=== PATIENT | female | born 1950 | race Caucasian/White ===

== ENCOUNTER → 2017-05-08 | Outpatient (CLI) | payer OTHER ==
[~2017-05-08] MED LIST: AMLO5TAB4 PO; CEFD300C37 PO; LISI1TAB5 PO; LISI1TAB7 PO; LOVA10TA PO; MECL25TA2 PO; MELO-190 PO; METF850T2 PO
== END | disposition home or self-care (01) ==
LOC: CFH 14:10
PROVIDERS: ATTEND Genetic Counselor, MS
DX: Z13.820 Encounter for screening for osteoporosis (principal); Z78.0 Asymptomatic menopausal state
CPT/HCPCS: 77080

== ENCOUNTER → 2017-06-08 | Outpatient (CLI) | payer OTHER ==
[~2017-06-08] MED LIST changes: -MELO-190 PO; +MELO7.5T31 PO
== END | disposition home or self-care (01) ==
LOC: STAR 14:37
PROVIDERS: ATTEND Orthopaedic Surgery Orthopaedic Surgery of the Spine
DX: Z01.818 Encounter for other preprocedural examination (principal); M48.07 Spinal stenosis, lumbosacral region; R82.99 Other abnormal findings in urine
CPT/HCPCS: 81001; 87086

== ENCOUNTER 2017-06-26 00:34 | Emergency (ER) | payer OTHER ==
[~2017-06-26] VITALS: Ht 160 cm; Wt 92.0 kg
[~2017-06-26 00:34] MED LIST changes: +ACET-1600 PO; +AMLO5TAB2 PO; +ASPI-621 PO; +ATOR-2 PO; +DIAZ5TAB4 PO; +GLIP10TA13 PO; +GLIP5TAB10 PO; +LEVE500T53 PO; +LISI-170 PO; +LISI40TA PO; +LOVA40TA2 PO; +OXYC1TAB7 PO; +VITA1CAP5 PO
[2017-06-26] MEDS ORDERED: SODIUM CHLORIDE 0.9% 1,000 ML IV ONE (00:50)
[2017-06-26] MEDS ORDERED: ONDANSETRON 2MG/ML, 2ML ONE (01:00)
[2017-06-26] MEDS ORDERED: MORPHINE SULFATE 4 MG/ML, 1ML ONE ×2 (01:00→02:54)
[2017-06-26] MEDS ORDERED: ONDANSETRON 2MG/ML, 2ML IVPush ONE (01:00)
[2017-06-26] MEDS: MORPHINE SULFATE 4 MG/ML, 1ML IVPush PRN ×2 (01:07→02:57)
[2017-06-26] MEDS ORDERED: ATOR80TA PO (01:50)
[2017-06-26] MEDS ORDERED: GABA300C10 PO (01:50)
[2017-06-26] MEDS ORDERED: INSU100C5 SQ-INSULIN (01:50)
[2017-06-26 04:47] VITALS: BP 149/69
== END 2017-06-26 06:40 | disposition home or self-care (01) ==
LOC: ED 02:13
DX: G89.11 Acute pain due to trauma (principal); M54.5 Low back pain; M25.552 Pain in left hip; M25.551 Pain in right hip; I10 Essential (primary) hypertension; E11.9 Type 2 diabetes mellitus without complications; E78.00 Pure hypercholesterolemia, unspecified; W06.XXXA Fall from bed, initial encounter; Y93.89 Activity, other specified; Y92.009 Unspecified place in unspecified non-institutional (private) residence as the place of occurrence of the external cause; Y99.9 Unspecified external cause status
CPT/HCPCS: 70450; 72110; 72192; 73523; 96361; 96374; 96375; 96376; 99285; J2405; J7030

== ENCOUNTER 2017-08-27 09:04 | Emergency (ER) | payer OTHER ==
[~2017-08-27] VITALS: Ht 162.6 cm; Wt 82.0 kg
[~2017-08-27 09:04] MED LIST changes: +ATOR80TA PO; +CARV3.1212 PO; +CARV3.122 PO; +FERR325T16 PO; +GABA300C10 PO; +INSU100C5 SQ-INSULIN; +INSU100I18 SQ-INSULIN
[2017-08-27 10:55] LABS: HEMATOCRIT 34.9 % (34.6-47.8); HEMOGLOBIN 11.4 g/dL (11.7-16.4); WHITE BLOOD COUNT 9.4 x10^3/uL (3.4-10)
[2017-08-27 11:08] LABS: ASPARTATE AMINO TRANSFERASE 11 U/L (15-37); BLOOD UREA NITROGEN 25 mg/dL (7-18)
[2017-08-27 13:21] VITALS: BP 171/81
== END 2017-08-27 13:23 | disposition home or self-care (01) ==
LOC: ED 12:15
DX: I82.432 Acute embolism and thrombosis of left popliteal vein (principal); Z87.891 Personal history of nicotine dependence
CPT/HCPCS: 36415; 70450; 80053; 85025; 85610; 85730; 93005; 99285

== ENCOUNTER 2017-08-31 10:57 | Inpatient (IN) | payer OTHER ==
[~2017-08-31] VITALS: Ht 162.6 cm; Wt 93.6 kg
[2017-08-31] MEDS ORDERED: SODIUM CHLORIDE FLUSH 10ML SYR IVF ONE (11:30)
[2017-08-31] MEDS ORDERED: ONDANSETRON 2MG/ML, 2ML IVPush ONE (11:30)
[2017-08-31] MEDS ORDERED: SODIUM CHLORIDE 0.9% 1,000ML IVBOLUS ONE (11:30)
[2017-08-31] MEDS ORDERED: ONDANSETRON 2MG/ML, 2ML ONE (11:39)
[2017-08-31 12:12] LABS: HEMATOCRIT 33.2 % (34.6-47.8); HEMOGLOBIN 10.8 g/dL (11.7-16.4); WHITE BLOOD COUNT 8.2 x10^3/uL (3.4-10)
[2017-08-31 12:18] LABS: BLOOD UREA NITROGEN 34 mg/dL (7-18)
[2017-08-31 12:22] LABS: ASPARTATE AMINO TRANSFERASE 11 U/L (15-37)
[2017-08-31] MEDS ORDERED: CEFTRIAXONE PMX 1GM/50ML 50 ML ONE (14:22)
[2017-08-31] MEDS ORDERED: CEFTRIAXONE PMX 1GM/50ML 50 ML IV ONE (14:30)
[2017-08-31] MEDS ORDERED: METF500T4 PO (16:31)
[2017-08-31] MEDS ORDERED: RIVA10TA PO (16:31)
[2017-08-31] MEDS: METRONIDAZOLE PMX 500MG/100ML 100 ML IV SCH (17:00)
[2017-08-31] MEDS ORDERED: ONDANSETRON 2MG/ML, 2ML IVPush PRN (17:00)
[2017-08-31] MEDS: CEFTRIAXONE PMX 2GM/50ML 50 ML IV SCH (17:00)
[2017-08-31] MEDS ORDERED: INSULIN ASPART 100 UNITS/ML, PEN SQ-INSULIN SCH (17:00)
[2017-08-31] MEDS ORDERED: METRONIDAZOLE PMX 500MG/100ML 100 ML ONE (17:15)
[2017-08-31] MEDS: SODIUM CHLORIDE 0.9% 1,000 ML IV SCH (17:32)
[2017-08-31 20:43] VITALS: BP 128/74
[2017-08-31] MEDS: INSULIN ASPART 100 UNITS/ML, PEN SQ-INSULIN SCH (21:00)
[2017-09-01] MEDS: METRONIDAZOLE PMX 500MG/100ML 100 ML IV SCH ×3 (00:07→19:50)
[2017-09-01] MEDS: SODIUM CHLORIDE 0.9% 1,000 ML IV SCH ×4 (00:07→23:42)
[2017-09-01 02:48] VITALS: BP 131/70
[2017-09-01 05:17] LABS: HEMATOCRIT 29.2 % (34.6-47.8); HEMOGLOBIN 9.3 g/dL (11.7-16.4); WHITE BLOOD COUNT 8.3 x10^3/uL (3.4-10)
[2017-09-01 05:25] LABS: BLOOD UREA NITROGEN 30 mg/dL (7-18)
[2017-09-01 05:28] LABS: ASPARTATE AMINO TRANSFERASE 12 U/L (15-37)
[2017-09-01 07:00] VITALS: BP 139/70
[2017-09-01] MEDS: INSULIN ASPART 100 UNITS/ML, PEN SQ-INSULIN SCH ×4 (07:00→21:00)
[2017-09-01] MEDS: PANTOPRAZOLE 40 MG IV IVPush SCH (08:31)
[2017-09-01] MEDS ORDERED: ENOXAPARIN 30 MG/0.3 ML SQ SCH (11:30)
[2017-09-01 12:45] VITALS: BP 150/79
[2017-09-01] MEDS: morphine SULFATE 10 MG/ML, 1ML IVPush PRN ×2 (14:23→19:53)
[2017-09-01] MEDS: FERROUS GLUCONATE 324 MG TABLET PO SCH (18:14)
[2017-09-01] MEDS: CEFTRIAXONE PMX 2GM/50ML 50 ML IV SCH (18:14)
[2017-09-01] MEDS: ATORVASTATIN 80 MG TABLET PO SCH (19:50)
[2017-09-01] MEDS: RIVAROXABAN 10 MG TABLET PO SCH (19:50)
[2017-09-01] MEDS: GABAPENTIN 300 MG CAPSULE PO SCH (19:50)
[2017-09-01 20:07] VITALS: BP 128/74
[2017-09-01 20:27] VITALS: BP 177/78
[2017-09-01] MEDS: hydrALAzine 20 MG/ML, 1ML IVPush PRN (20:45)
[2017-09-01 20:56] VITALS: BP 163/69
[2017-09-02] VITALS (9 sets, daily range): BP systolic 118–188; BP diastolic 66–102
[2017-09-02] MEDS: METRONIDAZOLE PMX 500MG/100ML 100 ML IV SCH ×3 (03:24→19:46)
[2017-09-02] MEDS: INSULIN ASPART 100 UNITS/ML, PEN SQ-INSULIN SCH ×4 (07:00→20:34)
[2017-09-02] MEDS: PANTOPRAZOLE 40 MG IV IVPush SCH (08:19)
[2017-09-02] MEDS: GABAPENTIN 300 MG CAPSULE PO SCH ×2 (08:19→20:30)
[2017-09-02] MEDS: RIVAROXABAN 10 MG TABLET PO SCH (08:19)
[2017-09-02] MEDS: CARVEDILOL 3.125 MG TABLET PO SCH (08:19)
[2017-09-02] MEDS: SODIUM CHLORIDE 0.9% 1,000 ML IV SCH ×2 (08:19→15:39)
[2017-09-02] MEDS: ENOXAPARIN 100 MG/ML SQ SCH ×2 (09:08→20:30)
[2017-09-02 09:10] LABS: BLOOD UREA NITROGEN 24 mg/dL (7-18)
[2017-09-02 09:13] LABS: ASPARTATE AMINO TRANSFERASE 15 U/L (15-37)
[2017-09-02] MEDS: ACETYLCYSTEINE 600 MG CAPSULE PO SCH ×2 (09:43→20:30)
[2017-09-02] MEDS ORDERED: OMNIPAQUE 350 MG/ML, 100ML BOTTLE ONE (10:42)
[2017-09-02] MEDS: FERROUS GLUCONATE 324 MG TABLET PO SCH (17:18)
[2017-09-02] MEDS: CEFTRIAXONE PMX 2GM/50ML 50 ML IV SCH (17:18)
[2017-09-02] MEDS: morphine SULFATE 10 MG/ML, 1ML IVPush PRN (19:46)
[2017-09-02] MEDS: ATORVASTATIN 80 MG TABLET PO SCH (20:30)
[2017-09-03 01:11] VITALS: BP 165/90
[2017-09-03] MEDS: METRONIDAZOLE PMX 500MG/100ML 100 ML IV SCH (03:05)
[2017-09-03 04:58] VITALS: BP 151/73
[2017-09-03] MEDS: SODIUM CHLORIDE 0.9% 1,000 ML IV SCH (05:00)
[2017-09-03 05:38] LABS: ABG COLLECTION SITE RIGHT RADIAL; COLLATERAL CIRCULATION TESTING NORMAL
[2017-09-03 05:44] VITALS: BP 132/77
[2017-09-03 05:52] LABS: HEMATOCRIT 28.5 % (34.6-47.8); HEMOGLOBIN 9.1 g/dL (11.7-16.4); WHITE BLOOD COUNT 6.5 x10^3/uL (3.4-10)
[2017-09-03 06:33] VITALS: BP 120/70
[2017-09-03] MEDS ORDERED: MAGNESIUM SULFATE PMX 4GM/100M 100 ML IV ONE (07:00)
[2017-09-03] MEDS ORDERED: POTASSIUM PHOSPHATE 44 MEQ in SODIUM CHLORIDE 0.9% 500 ML IV ONE (07:00)
[2017-09-03] MEDS: INSULIN ASPART 100 UNITS/ML, PEN SQ-INSULIN SCH ×4 (07:00→21:00)
[2017-09-03] MEDS: PANTOPRAZOLE 40 MG IV IVPush SCH (09:22)
[2017-09-03] MEDS: GABAPENTIN 300 MG CAPSULE PO SCH ×2 (09:22→21:03)
[2017-09-03] MEDS: HYDROcodone/APAP 5/325 TABLET PO PRN ×2 (09:22→21:05)
[2017-09-03] MEDS: metroNIDAZOLE 500 MG TABLET PO SCH ×3 (09:22→21:03)
[2017-09-03] MEDS: ENOXAPARIN 100 MG/ML SQ SCH (09:22)
[2017-09-03] MEDS: CARVEDILOL 3.125 MG TABLET PO SCH (09:23)
[2017-09-03] MEDS: ACETYLCYSTEINE 600 MG CAPSULE PO SCH ×2 (09:23→21:03)
[2017-09-03] MEDS: CEFTRIAXONE PMX 2GM/50ML 50 ML IV SCH (17:34)
[2017-09-03] MEDS: FERROUS GLUCONATE 324 MG TABLET PO SCH (17:36)
[2017-09-03] MEDS ORDERED: WARFARIN 5 MG TABLET PO-COUM SCH (18:00)
[2017-09-03] MEDS ORDERED: HEPARIN wt. based STROKE protocol MC PRN (21:00)
[2017-09-03] MEDS: ATORVASTATIN 80 MG TABLET PO SCH (21:03)
[2017-09-03] MEDS: DIAZEPAM 5 MG TABLET PO PRN (21:03)
[2017-09-03] MEDS: HEPARIN 25,000 UNITS/500ML PMX 500 ML IV PRN (21:17)
[2017-09-04 00:58] LABS: ABG COLLECTION SITE RIGHT RADIAL; COLLATERAL CIRCULATION TESTING NORMAL
[2017-09-04 04:48] LABS: HEMATOCRIT 25.7 % (34.6-47.8); HEMOGLOBIN 8.4 g/dL (11.7-16.4); WHITE BLOOD COUNT 4.5 x10^3/uL (3.4-10)
[2017-09-04 04:56] LABS: BLOOD UREA NITROGEN 16 mg/dL (7-18)
[2017-09-04 04:59] LABS: ASPARTATE AMINO TRANSFERASE 10 U/L (15-37)
[2017-09-04] MEDS: INSULIN ASPART 100 UNITS/ML, PEN SQ-INSULIN SCH ×4 (07:00→20:35)
[2017-09-04 08:22] LABS: ABG COLLECTION SITE RIGHT RADIAL; COLLATERAL CIRCULATION TESTING NORMAL
[2017-09-04] MEDS: GABAPENTIN 300 MG CAPSULE PO SCH ×2 (09:05→20:25)
[2017-09-04] MEDS: ACETYLCYSTEINE 600 MG CAPSULE PO SCH ×2 (09:05→20:25)
[2017-09-04] MEDS: metroNIDAZOLE 500 MG TABLET PO SCH ×3 (09:05→20:25)
[2017-09-04] MEDS: CARVEDILOL 3.125 MG TABLET PO SCH (09:05)
[2017-09-04] MEDS: PANTOPRAZOLE 40 MG IV IVPush SCH (09:05)
[2017-09-04] MEDS ORDERED: LIDOCAINE 1%, 20ML ONE (09:19)
[2017-09-04] MEDS: HEPARIN 25,000 UNITS/500ML PMX 500 ML IV PRN (11:40)
[2017-09-04] MEDS: FERROUS GLUCONATE 324 MG TABLET PO SCH (16:30)
[2017-09-04] MEDS: CEFTRIAXONE PMX 2GM/50ML 50 ML IV SCH (17:17)
[2017-09-04] MEDS: ATORVASTATIN 80 MG TABLET PO SCH (20:33)
[2017-09-04] MEDS: DIAZEPAM 5 MG TABLET PO PRN (21:35)
[2017-09-05 04:00] VITALS: BP 167/82
[2017-09-05 04:42] LABS: HEMATOCRIT 28.2 % (34.6-47.8); HEMOGLOBIN 9.2 g/dL (11.7-16.4)
[2017-09-05 04:54] LABS: BLOOD UREA NITROGEN 11 mg/dL (7-18)
[2017-09-05 04:59] LABS: ASPARTATE AMINO TRANSFERASE 14 U/L (15-37)
[2017-09-05] MEDS: hydrALAzine 20 MG/ML, 1ML IVPush PRN ×2 (05:11→17:14)
[2017-09-05] MEDS: HEPARIN 25,000 UNITS/500ML PMX 500 ML IV PRN (05:13)
[2017-09-05] MEDS: PANTOPRAZOLE 40 MG IV IVPush SCH (07:30)
[2017-09-05] MEDS: INSULIN ASPART 100 UNITS/ML, PEN SQ-INSULIN SCH ×4 (07:44→21:16)
[2017-09-05] MEDS ORDERED: PANTOPRAZOLE 40 MG IV ONE (07:51)
[2017-09-05] MEDS: metroNIDAZOLE 500 MG TABLET PO SCH ×3 (07:59→21:14)
[2017-09-05] MEDS: ACETYLCYSTEINE 600 MG CAPSULE PO SCH (07:59)
[2017-09-05] MEDS: GABAPENTIN 300 MG CAPSULE PO SCH ×2 (07:59→21:14)
[2017-09-05] MEDS: CARVEDILOL 3.125 MG TABLET PO SCH (07:59)
[2017-09-05] MEDS ORDERED: MAGNESIUM SULFATE PMX 4GM/100M 100 ML IV ONE (08:00)
[2017-09-05] MEDS ORDERED: BISACODYL 10 MG SUPP PR PRN (08:30)
[2017-09-05] MEDS: FAMOTIDINE 20 MG/2 ML IVPush SCH ×2 (09:18→21:13)
[2017-09-05] MEDS: FUROSEMIDE 20 MG/2 ML IV SCH ×2 (09:18→19:33)
[2017-09-05] MEDS: DOCUSATE 100 MG CAPSULE PO SCH (09:58)
[2017-09-05] MEDS: FERROUS GLUCONATE 324 MG TABLET PO SCH (17:14)
[2017-09-05] MEDS: CEFTRIAXONE PMX 2GM/50ML 50 ML IV SCH (17:15)
[2017-09-05] MEDS: morphine SULFATE 10 MG/ML, 1ML IVPush PRN (19:33)
[2017-09-05] MEDS: DIAZEPAM 5 MG TABLET PO PRN (21:14)
[2017-09-05] MEDS: SENNA/DOCUSATE TABLET PO SCH (21:14)
[2017-09-05] MEDS: ATORVASTATIN 80 MG TABLET PO SCH (21:14)
[2017-09-06] MEDS: HEPARIN 25,000 UNITS/500ML PMX 500 ML IV PRN ×2 (00:18→15:20)
[2017-09-06 04:15] VITALS: BP 134/58
[2017-09-06 04:44] LABS: BLOOD UREA NITROGEN 9 mg/dL (7-18)
[2017-09-06 04:48] LABS: ASPARTATE AMINO TRANSFERASE 16 U/L (15-37)
[2017-09-06] MEDS ORDERED: POTASSIUM CHLORIDE 20 MEQ TAB.ER.PRT PO ONE (06:30)
[2017-09-06] MEDS: DOCUSATE 100 MG CAPSULE PO SCH (08:49)
[2017-09-06] MEDS: GABAPENTIN 300 MG CAPSULE PO SCH ×2 (08:49→20:49)
[2017-09-06] MEDS: FAMOTIDINE 20 MG/2 ML IVPush SCH ×2 (08:49→20:49)
[2017-09-06] MEDS: INSULIN ASPART 100 UNITS/ML, PEN SQ-INSULIN SCH ×4 (08:49→20:51)
[2017-09-06] MEDS: metroNIDAZOLE 500 MG TABLET PO SCH ×3 (08:49→20:49)
[2017-09-06] MEDS: CARVEDILOL 3.125 MG TABLET PO SCH (08:49)
[2017-09-06] MEDS ORDERED: OMNIPAQUE 350 MG/ML, 100ML BOTTLE ONE (10:37)
[2017-09-06 11:01] VITALS: BP 153/79
[2017-09-06 14:33] VITALS: BP 150/79
[2017-09-06] MEDS: CEFTRIAXONE PMX 2GM/50ML 50 ML IV SCH (16:20)
[2017-09-06] MEDS: FERROUS GLUCONATE 324 MG TABLET PO SCH (16:20)
[2017-09-06 19:37] VITALS: BP 160/70
[2017-09-06] MEDS: ATORVASTATIN 80 MG TABLET PO SCH (20:49)
[2017-09-06] MEDS: SENNA/DOCUSATE TABLET PO SCH (20:50)
[2017-09-06] MEDS: DIAZEPAM 5 MG TABLET PO PRN (21:14)
[2017-09-07 00:05] VITALS: BP 153/74
[2017-09-07 04:15] VITALS: BP 148/69
[2017-09-07 05:42] LABS: HEMATOCRIT 26.7 % (34.6-47.8); HEMOGLOBIN 8.6 g/dL (11.7-16.4); WHITE BLOOD COUNT 5.8 x10^3/uL (3.4-10)
[2017-09-07 06:06] LABS: BLOOD UREA NITROGEN 7 mg/dL (7-18)
[2017-09-07 06:09] LABS: ASPARTATE AMINO TRANSFERASE 10 U/L (15-37)
[2017-09-07 06:10] LABS: ANTI-Xa-UNFRACTIONATED HEP 0.34 IU/mL (0.30-0.70)
[2017-09-07] MEDS ORDERED: MAGNESIUM SULFATE PMX 2GM/50ML 50 ML IV ONE (07:30)
[2017-09-07 07:33] VITALS: BP 151/68
[2017-09-07] MEDS: DOXYCYCLINE 100 MG in DEXTROSE 5% 250 ML IV SCH ×2 (08:08→20:24)
[2017-09-07] MEDS: HEPARIN 25,000 UNITS/500ML PMX 500 ML IV PRN (08:35)
[2017-09-07] MEDS: INSULIN ASPART 100 UNITS/ML, PEN SQ-INSULIN SCH ×4 (08:51→20:26)
[2017-09-07] MEDS: GABAPENTIN 300 MG CAPSULE PO SCH ×2 (08:51→20:25)
[2017-09-07] MEDS: FAMOTIDINE 20 MG/2 ML IVPush SCH ×2 (08:51→20:25)
[2017-09-07] MEDS: DOCUSATE 100 MG CAPSULE PO SCH (08:51)
[2017-09-07] MEDS: metroNIDAZOLE 500 MG TABLET PO SCH ×3 (08:51→20:25)
[2017-09-07] MEDS: CARVEDILOL 3.125 MG TABLET PO SCH (08:51)
[2017-09-07] MEDS ORDERED: LOSARTAN 25MG TABLET PO SCH (10:30)
[2017-09-07] MEDS: LACTULOSE 20 GM/30 ML UDC PO PRN (12:50)
[2017-09-07] MEDS: FERROUS GLUCONATE 324 MG TABLET PO SCH (17:20)
[2017-09-07] MEDS: CEFTRIAXONE PMX 2GM/50ML 50 ML IV SCH (17:20)
[2017-09-07] MEDS ORDERED: WARFARIN 5 MG TABLET PO-COUM ONE (18:00)
[2017-09-07 18:41] VITALS: BP 154/68
[2017-09-07] MEDS: ATORVASTATIN 80 MG TABLET PO SCH (20:25)
[2017-09-07] MEDS ORDERED: CARVEDILOL 6.25 MG TABLET PO SCH (21:00)
[2017-09-08 00:06] VITALS: BP 154/73
[2017-09-08] MEDS: HEPARIN 25,000 UNITS/500ML PMX 500 ML IV PRN ×2 (03:14→17:12)
[2017-09-08 04:06] VITALS: BP 156/72
[2017-09-08 05:42] LABS: ANTI-Xa-UNFRACTIONATED HEP 0.08 IU/mL (0.30-0.70)
[2017-09-08 05:45] LABS: HEMATOCRIT 26.6 % (34.6-47.8); HEMOGLOBIN 8.6 g/dL (11.7-16.4); WHITE BLOOD COUNT 6.2 x10^3/uL (3.4-10)
[2017-09-08] MEDS: DOXYCYCLINE 100 MG in DEXTROSE 5% 250 ML IV SCH ×2 (08:01→20:45)
[2017-09-08 08:13] VITALS: BP 170/56
[2017-09-08] MEDS: LACTULOSE 20 GM/30 ML UDC PO PRN (08:43)
[2017-09-08] MEDS: INSULIN ASPART 100 UNITS/ML, PEN SQ-INSULIN SCH ×4 (08:43→20:46)
[2017-09-08] MEDS: metroNIDAZOLE 500 MG TABLET PO SCH ×3 (08:44→20:45)
[2017-09-08] MEDS: LOSARTAN 50MG TABLET PO SCH (08:44)
[2017-09-08] MEDS: FAMOTIDINE 20 MG/2 ML IVPush SCH ×2 (08:44→20:46)
[2017-09-08] MEDS: CARVEDILOL 12.5 MG TABLET PO SCH ×2 (08:44→20:45)
[2017-09-08] MEDS: GABAPENTIN 300 MG CAPSULE PO SCH ×2 (08:44→20:45)
[2017-09-08] MEDS: DOCUSATE 100 MG CAPSULE PO SCH (08:44)
[2017-09-08 12:34] VITALS: BP 166/69
[2017-09-08] MEDS: CEFTRIAXONE PMX 2GM/50ML 50 ML IV SCH (17:01)
[2017-09-08] MEDS: FERROUS GLUCONATE 324 MG TABLET PO SCH (17:02)
[2017-09-08] MEDS ORDERED: WARFARIN 5 MG TABLET PO-COUM SCH (18:00)
[2017-09-08 19:14] VITALS: BP 136/72
[2017-09-08] MEDS: HYDROcodone/APAP 5/325 TABLET PO PRN (20:12)
[2017-09-08] MEDS: ATORVASTATIN 80 MG TABLET PO SCH (20:45)
[2017-09-09 02:39] VITALS: BP 121/70
[2017-09-09] MEDS: HEPARIN 25,000 UNITS/500ML PMX 500 ML IV PRN ×2 (05:56→19:56)
[2017-09-09] MEDS: INSULIN ASPART 100 UNITS/ML, PEN SQ-INSULIN SCH ×4 (07:00→20:39)
[2017-09-09 07:15] VITALS: BP 126/71
[2017-09-09] MEDS: DOXYCYCLINE 100 MG in DEXTROSE 5% 250 ML IV SCH ×2 (08:16→20:04)
[2017-09-09] MEDS: FAMOTIDINE 20 MG/2 ML IVPush SCH ×2 (08:16→20:38)
[2017-09-09] MEDS: CARVEDILOL 12.5 MG TABLET PO SCH ×2 (08:16→20:38)
[2017-09-09] MEDS: DOCUSATE 100 MG CAPSULE PO SCH (08:16)
[2017-09-09] MEDS: GABAPENTIN 300 MG CAPSULE PO SCH ×2 (08:17→20:38)
[2017-09-09] MEDS: LOSARTAN 50MG TABLET PO SCH (08:17)
[2017-09-09] MEDS: metroNIDAZOLE 500 MG TABLET PO SCH ×3 (08:17→20:38)
[2017-09-09 13:31] VITALS: BP 181/76
[2017-09-09 16:38] VITALS: BP 167/73
[2017-09-09] MEDS ORDERED: WARFARIN 5 MG TABLET PO-COUM ONE (18:00)
[2017-09-09] MEDS: CEFTRIAXONE PMX 2GM/50ML 50 ML IV SCH (18:10)
[2017-09-09] MEDS: FERROUS GLUCONATE 324 MG TABLET PO SCH (18:10)
[2017-09-09] MEDS: HYDROcodone/APAP 5/325 TABLET PO PRN (18:10)
[2017-09-09 20:00] VITALS: BP 172/74
[2017-09-09] MEDS: ATORVASTATIN 80 MG TABLET PO SCH (20:38)
[2017-09-09 23:26] VITALS: BP 154/75
[2017-09-10 04:04] VITALS: BP 149/65
[2017-09-10 05:44] LABS: ANTI-Xa-UNFRACTIONATED HEP 0.49 IU/mL (0.30-0.70)
[2017-09-10 06:50] VITALS: BP 155/67
[2017-09-10] MEDS: DOXYCYCLINE 100 MG in DEXTROSE 5% 250 ML IV SCH (07:46)
[2017-09-10] MEDS: CARVEDILOL 12.5 MG TABLET PO SCH (08:18)
[2017-09-10] MEDS: DOCUSATE 100 MG CAPSULE PO SCH (08:18)
[2017-09-10] MEDS: metroNIDAZOLE 500 MG TABLET PO SCH (08:18)
[2017-09-10] MEDS: LOSARTAN 50MG TABLET PO SCH (08:18)
[2017-09-10] MEDS: FAMOTIDINE 20 MG/2 ML IVPush SCH (08:18)
[2017-09-10] MEDS: GABAPENTIN 300 MG CAPSULE PO SCH (08:18)
[2017-09-10] MEDS: INSULIN ASPART 100 UNITS/ML, PEN SQ-INSULIN SCH ×2 (08:19→11:29)
[2017-09-10] MEDS ORDERED: LOSA50TA2 PO (08:58)
[2017-09-10] MEDS ORDERED: DOXY100T10 PO (08:58)
[2017-09-10] MEDS ORDERED: CARV12.543 PO (08:58)
[2017-09-10] MEDS ORDERED: CEFD300C37 PO (08:58)
[2017-09-10] MEDS ORDERED: DOCU-131 PO (08:58)
[2017-09-10] MEDS ORDERED: METR500T PO (08:58)
[2017-09-10] MEDS ORDERED: WARF5TAB PO (08:58)
[2017-09-10] MEDS ORDERED: LOSARTAN 50MG TABLET PO SCH (09:00)
[2017-09-10 12:22] VITALS: BP 161/72
[2017-09-10] MEDS ORDERED: WARFARIN 5 MG TABLET PO-COUM ONE (18:00)
== END 2017-09-10 16:14 | disposition home health service (06) | DRG 871 ==
LOC: ED 12:39 → EDIP 15:53 → SUATTDRO 15:58 → 3NE 20:11 → CCU 09-03 07:31 → 4EST 09-06 10:53
PROVIDERS: ADMIT Internal Medicine; ATTEND Internal Medicine
PROC: 0T9B70Z Drainage of Bladder with Drainage Device, Via Natural or Artificial Opening (ICD-10-PCS; 2017-08-31)
PROC: 0GBH3ZX Excision of Right Thyroid Gland Lobe, Percutaneous Approach, Diagnostic (ICD-10-PCS; principal; 2017-09-04)
DX: A41.9 Sepsis, unspecified organism (principal); G93.40 Encephalopathy, unspecified; I26.99 Other pulmonary embolism without acute cor pulmonale; J96.01 Acute respiratory failure with hypoxia; E43 Unspecified severe protein-calorie malnutrition; A04.72 Enterocolitis due to Clostridium difficile, not specified as recurrent; I82.402 Acute embolism and thrombosis of unspecified deep veins of left lower extremity; J90 Pleural effusion, not elsewhere classified; E11.22 Type 2 diabetes mellitus with diabetic chronic kidney disease; J18.1 Lobar pneumonia, unspecified organism; I69.354 Hemiplegia and hemiparesis following cerebral infarction affecting left non-dominant side; N39.0 Urinary tract infection, site not specified; N18.3 Chronic kidney disease, stage 3 (moderate); E78.5 Hyperlipidemia, unspecified; I12.9 Hypertensive chronic kidney disease with stage 1 through stage 4 chronic kidney disease, or unspecified chronic kidney disease; B96.20 Unspecified Escherichia coli [E. coli] as the cause of diseases classified elsewhere; B95.4 Other streptococcus as the cause of diseases classified elsewhere; E04.1 Nontoxic single thyroid nodule; E78.00 Pure hypercholesterolemia, unspecified; E83.39 Other disorders of phosphorus metabolism; E83.42 Hypomagnesemia; K59.00 Constipation, unspecified; I07.1 Rheumatic tricuspid insufficiency; M19.90 Unspecified osteoarthritis, unspecified site; R91.1 Solitary pulmonary nodule; Z51.5 Encounter for palliative care; Z68.35 Body mass index [BMI] 35.0-35.9, adult; Z88.6 Allergy status to analgesic agent; Z79.01 Long term (current) use of anticoagulants; Z80.0 Family history of malignant neoplasm of digestive organs; Z85.048 Personal history of other malignant neoplasm of rectum, rectosigmoid junction, and anus; Z87.891 Personal history of nicotine dependence; Z98.1 Arthrodesis status; Z98.51 Tubal ligation status; Z90.89 Acquired absence of other organs; Z79.84 Long term (current) use of oral hypoglycemic drugs; Z79.899 Other long term (current) drug therapy
CPT/HCPCS: 10022; 36415; 36600; 70450; 71010; 71275; 74177; 76536; 76942; 78306; 80053; 81001; 82140; 82803; 82962; 83036; 83605; 83690; 83735; 84100; 84439; 84443; 85025; 85520; 85610; 85730; 87040; 87077; 87081; 87086; 87186; 87324; 87493; 88173; 89055; 93005; 93306; 93970; 96361; 96365; 96372; 96375; J0696; J1644; J1650; J1815; J2405; J3490; J7060; Q9967; A9503; C9113; C9898; J0360; J1940; J2270; J3475; J7030; J7040; S0028

== ENCOUNTER 2017-10-20 10:39 | Emergency (ER) | payer OTHER ==
[~2017-10-20] VITALS: Ht 160 cm; Wt 76.3 kg
[~2017-10-20 10:39] MED LIST changes: +CARV12.543 PO; +DOCU-131 PO; +DOXY100T10 PO; +LOSA50TA2 PO; +METF500T4 PO; +METR500T PO; +RIVA10TA PO; +WARF5TAB PO
[2017-10-20 11:36] LABS: BASOPHILS % (AUTO) 0 % (0-1); EOSINOPHILS # (AUTO) 0.16 x10^3/uL (0-0.4); EOSINOPHILS % (AUTO) 2 % (1-7); LYMPHOCYTES % (AUTO) 18 % (22-44); MD NO; MEAN CORPUSCULAR HGB CONC 32.2 g/dL (32.4-35.8); MEAN CORPUSCULAR VOLUME 80.7 fL (80-100); MEAN PLATELET VOLUME 8.6 fL (7.4-10.4); MONOCYTES # (AUTO) 0.27 x10^3/uL (0.2-0.8); MONOCYTES % (AUTO) 3 % (2-9); NEUTROPHILS # (AUTO) 6.13 x10^3/uL (1.8-6.8); NEUTROPHILS % (AUTO) 77 % (42-75); PLATELET COUNT 238 x10^3/uL (130-400); RED BLOOD COUNT 4.49 x10^6/uL (3.82-5.3)
[2017-10-20 11:42] LABS: INTERNATIONAL NORMALIZED RATIO 1.78 (0.93-1.1); PROTHROMBIN TIME 18.3 Seconds (9.6-11.5)
[2017-10-20 11:45] LABS: ALBUMIN 2.8 g/dL (3.4-5.0); ANION GAP 8 mmol/L (5-15); CALCIUM 9.5 mg/dL (8.5-10.1); CHLORIDE 109 mmol/L (98-107); CREATININE 0.67 mg/dL (0.55-1.02)
[2017-10-20 12:46] LABS: MICROSCOPIC AUTO
[2017-10-20 12:51] LABS: CULTURE INDICATED? YES
[2017-10-20 13:59] VITALS: BP 147/77
== END 2017-10-20 14:01 | disposition home or self-care (01) ==
LOC: ED 11:05
DX: N30.01 Acute cystitis with hematuria (principal); L89.92 Pressure ulcer of unspecified site, stage 2; E78.00 Pure hypercholesterolemia, unspecified; E87.5 Hyperkalemia; E11.9 Type 2 diabetes mellitus without complications; I10 Essential (primary) hypertension; Z86.73 Personal history of transient ischemic attack (TIA), and cerebral infarction without residual deficits; Z86.718 Personal history of other venous thrombosis and embolism; Z87.891 Personal history of nicotine dependence
CPT/HCPCS: 36415; 80048; 81001; 82040; 85025; 85610; 87077; 87086; 87186; 99284

== ENCOUNTER 2018-04-04 10:53 | Observation (INO) | payer OTHER ==
[~2018-04-04] VITALS: Ht 160 cm; Wt 78.9 kg
[~2018-04-04 10:53] MED LIST changes: -METF500T4 PO; +METF500T5 PO
[2018-04-04 11:52] LABS: BASOPHILS # (AUTO) 0.03 x10^3/uL (0-0.1); BASOPHILS % (AUTO) 0 % (0-1); EOSINOPHILS # (AUTO) 0.26 x10^3/uL (0-0.4); EOSINOPHILS % (AUTO) 3 % (1-7); LYMPHOCYTES # (AUTO) 2.25 x10^3/uL (1-3.4); LYMPHOCYTES % (AUTO) 23 % (22-44); MD NO; MEAN CORPUSCULAR HEMOGLOBIN 26.7 pg (27.0-34.8); MEAN CORPUSCULAR HGB CONC 32.6 g/dL (32.4-35.8); MEAN CORPUSCULAR VOLUME 81.8 fL (80-100); MEAN PLATELET VOLUME 9.2 fL (7.4-10.4); MONOCYTES # (AUTO) 0.39 x10^3/uL (0.2-0.8); MONOCYTES % (AUTO) 4 % (2-9); NEUTROPHILS # (AUTO) 6.97 x10^3/uL (1.8-6.8); NEUTROPHILS % (AUTO) 70 % (42-75); PLATELET COUNT 225 x10^3/uL (130-400); RED BLOOD COUNT 4.38 x10^6/uL (3.82-5.3); RED CELL DISTRIBUTION WIDTH 14.5 % (9.6-15.2)
[2018-04-04 11:56] LABS: ALANINE AMINOTRANSFERASE 18 U/L (12-78); ALBUMIN 2.8 g/dL (3.4-5.0); ANION GAP 11 mmol/L (5-15); CALCIUM 9.8 mg/dL (8.5-10.1); CHLORIDE 112 mmol/L (98-107); CREATININE 1.27 mg/dL (0.55-1.02); T4 (THYROXINE) 9.3 mcg/dL (4.8-13.9)
[2018-04-04 12:00] LABS: ALKALINE PHOSPHATASE 68 U/L (45-117); BILIRUBIN,TOTAL 0.3 mg/dL (0.2-1.0); TOTAL PROTEIN 6.4 g/dL (6.4-8.2); TROPONIN I < 0.015 ng/mL (0.000-0.045)
[2018-04-04] MEDS ORDERED: SODIUM CHLORIDE 0.9%, 500ML IVBOLUS ONE (12:30)
[2018-04-04] MEDS ORDERED: ENOXAPARIN 30 MG/0.3 ML SQ SCH (14:00)
[2018-04-04] MEDS ORDERED: DOCUSATE 100 MG CAPSULE PO PRN (14:30)
[2018-04-04] MEDS ORDERED: ENOXAPARIN 40 MG/0.4 ML ONE (15:34)
[2018-04-04 16:20] VITALS: BP 147/73
[2018-04-04 16:28] VITALS: BP 138/76
[2018-04-04 16:30] VITALS: BP 143/70
[2018-04-04] MEDS: FERROUS GLUCONATE 324 MG TABLET PO SCH (17:07)
[2018-04-04] MEDS: POTASSIUM CHLORIDE 20 MEQ in LACTATED RINGERS 1,000 ML IV SCH (17:07)
[2018-04-04 17:51] LABS: INTERNATIONAL NORMALIZED RATIO 2.15 (0.93-1.1)
[2018-04-04] MEDS ORDERED: WARFARIN 5 MG TABLET PO-COUM SCH (18:00)
[2018-04-04 20:00] VITALS: BP 146/68
[2018-04-04 20:21] VITALS: BP 158/72
[2018-04-04] MEDS ORDERED: WARFARIN 5 MG TABLET PO-COUM ONE (21:00)
[2018-04-04] MEDS ORDERED: ACETAMINOPHEN 325 MG TABLET ONE (21:24)
[2018-04-04] MEDS ORDERED: DIPHENHYDRAMINE 25 MG CAPSULE ONE (21:25)
[2018-04-04 21:30] VITALS: BP 149/90
[2018-04-04] MEDS ORDERED: DIPHENHYDRAMINE 25 MG CAPSULE PO ONE (21:30)
[2018-04-04] MEDS ORDERED: ACETAMINOPHEN 325 MG TABLET PO ONE (21:30)
[2018-04-04] MEDS: GABAPENTIN 300 MG CAPSULE PO SCH (21:32)
[2018-04-04] MEDS: CARVEDILOL 12.5 MG TABLET PO SCH (21:32)
[2018-04-04] MEDS: ATORVASTATIN 80 MG TABLET PO SCH (21:33)
[2018-04-05 01:38] VITALS: BP 136/78
[2018-04-05] MEDS: POTASSIUM CHLORIDE 20 MEQ in LACTATED RINGERS 1,000 ML IV SCH (02:13)
[2018-04-05 05:47] LABS: INTERNATIONAL NORMALIZED RATIO 2.28 (0.93-1.1); PROTHROMBIN TIME 23.3 Seconds (9.6-11.5)
[2018-04-05 05:49] LABS: BASOPHILS # (AUTO) 0.05 x10^3/uL (0-0.1); BASOPHILS % (AUTO) 1 % (0-1); EOSINOPHILS # (AUTO) 0.36 x10^3/uL (0-0.4); EOSINOPHILS % (AUTO) 5 % (1-7); LYMPHOCYTES % (AUTO) 34 % (22-44); MD NO; MEAN CORPUSCULAR HEMOGLOBIN 26.8 pg (27.0-34.8); MEAN CORPUSCULAR HGB CONC 32.9 g/dL (32.4-35.8); MEAN CORPUSCULAR VOLUME 81.7 fL (80-100); MEAN PLATELET VOLUME 9.4 fL (7.4-10.4); MONOCYTES # (AUTO) 0.48 x10^3/uL (0.2-0.8); MONOCYTES % (AUTO) 6 % (2-9); NEUTROPHILS # (AUTO) 4.23 x10^3/uL (1.8-6.8); NEUTROPHILS % (AUTO) 55 % (42-75); PLATELET COUNT 181 x10^3/uL (130-400); RED BLOOD COUNT 3.93 x10^6/uL (3.82-5.3); RED CELL DISTRIBUTION WIDTH 14.4 % (9.6-15.2)
[2018-04-05 05:55] LABS: CALCIUM 9.2 mg/dL (8.5-10.1); CHLORIDE 114 mmol/L (98-107)
[2018-04-05 05:59] LABS: ANION GAP 8 mmol/L (5-15); CREATININE 0.89 mg/dL (0.55-1.02)
[2018-04-05 08:42] VITALS: BP 148/73
[2018-04-05] MEDS: CARVEDILOL 12.5 MG TABLET PO SCH ×2 (09:07→22:08)
[2018-04-05] MEDS: GABAPENTIN 300 MG CAPSULE PO SCH ×2 (09:07→22:08)
[2018-04-05] MEDS: LOSARTAN 50MG TABLET PO SCH (09:07)
[2018-04-05] MEDS ORDERED: MAGNESIUM SULFATE 4 GM in SODIUM CHLORIDE 0.9% 100 ML IV ONE (09:30)
[2018-04-05] MEDS ORDERED: MAGNESIUM SULFATE PMX 4GM/100M 100 ML IVPB ONE (09:30)
[2018-04-05] MEDS: SODIUM CHLORIDE 0.9% 1,000 ML IV SCH ×2 (11:18→22:08)
[2018-04-05 13:43] VITALS: BP 133/74
[2018-04-05] MEDS: FERROUS GLUCONATE 324 MG TABLET PO SCH (17:49)
[2018-04-05] MEDS ORDERED: WARFARIN 5 MG TABLET PO-COUM SCH ×2 (18:00)
[2018-04-05 18:19] LABS: MICROSCOPIC AUTO
[2018-04-05 18:26] LABS: CULTURE INDICATED? YES
[2018-04-05 19:57] VITALS: BP 160/81
[2018-04-05 22:00] VITALS: BP 147/64
[2018-04-05] MEDS: ATORVASTATIN 80 MG TABLET PO SCH (22:08)
[2018-04-06 01:22] VITALS: BP 146/66
[2018-04-06 05:12] LABS: INTERNATIONAL NORMALIZED RATIO 1.84 (0.93-1.1); PROTHROMBIN TIME 18.9 Seconds (9.6-11.5)
[2018-04-06 07:47] VITALS: BP 147/81
[2018-04-06] MEDS: LOSARTAN 50MG TABLET PO SCH (08:24)
[2018-04-06] MEDS: CARVEDILOL 12.5 MG TABLET PO SCH (08:24)
[2018-04-06] MEDS: GABAPENTIN 300 MG CAPSULE PO SCH (08:24)
[2018-04-06 13:50] VITALS: BP 144/71
[2018-04-06] MEDS ORDERED: WARFARIN 3 MG TABLET PO-COUM ONE (18:00)
== END 2018-04-06 16:34 | disposition home or self-care (01) ==
LOC: ED 11:41 → EDIP 12:54 → INTOOBSV 12:54 → 4EST 16:11
PROVIDERS: ADMIT Hospitalist; ATTEND Hospitalist
DX: R55 Syncope and collapse (principal); E11.22 Type 2 diabetes mellitus with diabetic chronic kidney disease; E78.00 Pure hypercholesterolemia, unspecified; E78.5 Hyperlipidemia, unspecified; E83.42 Hypomagnesemia; E86.0 Dehydration; I12.9 Hypertensive chronic kidney disease with stage 1 through stage 4 chronic kidney disease, or unspecified chronic kidney disease; N18.3 Chronic kidney disease, stage 3 (moderate); N17.9 Acute kidney failure, unspecified; Z86.73 Personal history of transient ischemic attack (TIA), and cerebral infarction without residual deficits; Z79.01 Long term (current) use of anticoagulants; Z87.891 Personal history of nicotine dependence; Z80.0 Family history of malignant neoplasm of digestive organs
CPT/HCPCS: 36415; 71045; 80048; 80053; 81001; 83735; 84100; 84436; 84443; 84484; 85025; 85610; 87077; 87086; 87186; 93005; 93306; 93880; 96361; 96365; 96366; 97163; 97167; 99285; G0378; J3475; J3480; J7030; J7040; J7120; Q0163

== ENCOUNTER 2018-07-03 10:27 | Day surgery (SDC) | payer OTHER, MEDICAID ==
[~2018-07-03] VITALS: Ht 160 cm; Wt 74.1 kg
[~2018-07-03 10:27] MED LIST changes: -AMLO5TAB2 PO; +AMLO5TAB7 PO; +METF500T17 PO; -METF500T5 PO; +METF850T10 PO; -METF850T2 PO
[2018-07-03 11:05] VITALS: BP 149/79
[2018-07-03] MEDS ORDERED: BUPIVACAINE 0.25% ONE (11:20)
== END 2018-07-03 12:19 | disposition home or self-care (01) ==
LOC: CACL 10:27
PROVIDERS: ATTEND Internal Medicine Cardiovascular Disease
DX: I63.9 Cerebral infarction, unspecified (principal); I48.91 Unspecified atrial fibrillation; I10 Essential (primary) hypertension; E11.9 Type 2 diabetes mellitus without complications; E78.5 Hyperlipidemia, unspecified; Z79.899 Other long term (current) drug therapy
CPT/HCPCS: 33282; C1764; J3490

== ENCOUNTER 2019-09-18 11:58 | Inpatient (IN) | payer MEDICAID, MEDICARE, OTHER ==
[~2019-09-18] VITALS: Ht 162.6 cm; Wt 74.2 kg
[~2019-09-18 11:58] MED LIST changes: +AMLO-150 PO; -AMLO5TAB7 PO; -ASPI-621 PO; +ASPI81TA45 PO; -DOXY100T10 PO; +DOXY100T23 PO; +LISI1TAB19 PO; +LISI1TAB20 PO; -LISI1TAB5 PO; -LISI1TAB7 PO; -RIVA10TA PO; +RIVA10TA2 PO
[2019-09-18] MEDS ORDERED: AMLO10TA8 PO (12:25)
[2019-09-18] MEDS ORDERED: RIVA15TA PO (12:25)
[2019-09-18] MEDS ORDERED: ISOS120T4 PO (12:25)
[2019-09-18] MEDS ORDERED: CARV20CP PO (12:25)
[2019-09-18] MEDS ORDERED: METF10007 PO (12:25)
[2019-09-18] MEDS ORDERED: ATOR40TA78 PO (12:25)
[2019-09-18] MEDS ORDERED: GABA300C10 PO (12:25)
--- NOTE | 2019-09-18 12:30 | NUR ---
PT HAS CO OF NEW ONSET SWELLING IN LEGS AND ARMS. HX OF CHF. DENIES CP, COB, OR COUGH. NO N/V/D. PT BILAT LOWER LEG IS 2+ EDEMA PITTING. PT STATES "MY ANKLES ARE NORMALLY SKINNY". WT INCREASE FROM LAST DR VISIT A MONTH AGO. 160 LBS TO 198 LBS TODAY. PT IS MAX ASSIST FROM CHAIR TO BED. FAMILY AT BEDSIDE. POC DISCUSSED. SENIOR SUPPORT ENGINEER APPLIED.
[2019-09-18] MEDS ORDERED: SODIUM CHLORIDE FLUSH 10ML SYR IVF ONE (13:30)
--- NOTE | 2019-09-18 13:38 | NUR ---
IV ESTABLISHED, LABS DRAWN. VS STABLE, NO NEEDS AT THIS TIME
[2019-09-18 13:48] LABS: BASOPHILS # (AUTO) 0.05 x10^3/uL (0-0.1); BASOPHILS % (AUTO) 1 % (0-1); EOSINOPHILS # (AUTO) 0.69 x10^3/uL (0-0.4); EOSINOPHILS % (AUTO) 11 % (1-7); LYMPHOCYTES # (AUTO) 1.09 x10^3/uL (1-3.4); LYMPHOCYTES % (AUTO) 18 % (22-44); MD NO; MEAN CORPUSCULAR HEMOGLOBIN 26.4 pg (27.0-34.8); MEAN CORPUSCULAR HGB CONC 31.7 g/dL (32.4-35.8); MEAN CORPUSCULAR VOLUME 83.3 fL (80-100); MEAN PLATELET VOLUME 8.1 fL (7.4-10.4); MONOCYTES # (AUTO) 0.23 x10^3/uL (0.2-0.8); MONOCYTES % (AUTO) 4 % (2-9); NEUTROPHILS # (AUTO) 4.01 x10^3/uL (1.8-6.8); NEUTROPHILS % (AUTO) 66 % (42-75); PLATELET COUNT 182 x10^3/uL (130-400); RED BLOOD COUNT 3.15 x10^6/uL (3.82-5.3); RED CELL DISTRIBUTION WIDTH 14.5 % (9.6-15.2)
[2019-09-18 13:59] LABS: ALBUMIN 2.5 g/dL (3.4-5.0); ANION GAP 7 mmol/L (5-15); CALCIUM 8.3 mg/dL (8.5-10.1); CHLORIDE 119 mmol/L (98-107); INTERNATIONAL NORMALIZED RATIO 1.49 (0.93-1.1); PROTHROMBIN TIME 15.4 Seconds (9.6-11.5)
[2019-09-18 14:04] LABS: ALANINE AMINOTRANSFERASE 9 U/L (12-78); ALKALINE PHOSPHATASE 66 U/L (45-117); BILIRUBIN,TOTAL 0.3 mg/dL (0.2-1.0); CREATININE 2.24 mg/dL (0.55-1.02); TOTAL PROTEIN 6.1 g/dL (6.4-8.2); TROPONIN I < 0.015 ng/mL (0.000-0.045)
--- NOTE | 2019-09-18 14:40 | NUR ---
THROUGHPUT RN: PT W/ [employer]. SPOKE W/ EMERSON FROM [facility] WHO DECLINED TRANSFER. SPOKE W/ ERIN FROM [facility] WHO DECLINED TRANSFER. PSN FAXED TO [phone]. CONFIRMATION RECEIVED.
--- NOTE | 2019-09-18 14:48 | NUR ---
BREAK RN: PT PROVIDED WITH WARM BLANKETS, AND WATER PER REQUEST. CALL LIGHT IN REACH. PT DENIES ANY FURTHER NEEDS OR CONCERNS AT THIS TIME.
--- NOTE | 2019-09-18 14:56 | NUR ---
BREAK RN: CHARTED UNDER WRONG NAME ACCIDENTALLY. EARLIER NOTE TO THIS USER.
--- NOTE | 2019-09-18 15:13 | NUR ---
REPORT TO IRINA
[2019-09-18] MEDS ORDERED: RIVAROXABAN 10 MG TABLET PO SCH (16:30)
[2019-09-18] MEDS ORDERED: LACTATED RINGERS 1,000 ML IV SCH (16:30)
[2019-09-18] MEDS ORDERED: FERROUS GLUCONATE 324 MG TABLET PO SCH (17:00)
[2019-09-18 17:04] VITALS: BP 149/67
[2019-09-18] MEDS: RIVAROXABAN 10 MG TABLET PO SCH (17:21)
[2019-09-18 19:35] VITALS: BP 166/73
[2019-09-18] MEDS: INSULIN LISPRO 100 UNITS/ML, PEN SQ-INSULIN SCH (21:00)
[2019-09-18] MEDS: GABAPENTIN 300 MG CAPSULE PO SCH (21:05)
[2019-09-18] MEDS: ATORVASTATIN 40 MG TABLET PO SCH (21:06)
[2019-09-18] MEDS: ACETAMINOPHEN 325 MG TABLET PO PRN (22:52)
[2019-09-19 02:52] VITALS: BP 149/64
[2019-09-19 04:19] LABS: MEAN CORPUSCULAR HEMOGLOBIN 25.9 pg (27.0-34.8); MEAN CORPUSCULAR HGB CONC 31.5 g/dL (32.4-35.8); MEAN CORPUSCULAR VOLUME 82.3 fL (80-100); PLATELET COUNT 169 x10^3/uL (130-400); RED BLOOD COUNT 2.95 x10^6/uL (3.82-5.3); RED CELL DISTRIBUTION WIDTH 14.5 % (9.6-15.2)
[2019-09-19 04:27] LABS: BASOPHILS # (AUTO) 0.05 x10^3/uL (0-0.1); BASOPHILS % (AUTO) 1 % (0-1); EOSINOPHILS # (AUTO) 0.71 x10^3/uL (0-0.4); EOSINOPHILS % (AUTO) 13 % (1-7); LYMPHOCYTES # (AUTO) 1.38 x10^3/uL (1-3.4); LYMPHOCYTES % (AUTO) 25 % (22-44); MD NO; MONOCYTES # (AUTO) 0.26 x10^3/uL (0.2-0.8); MONOCYTES % (AUTO) 5 % (2-9); NEUTROPHILS # (AUTO) 3.07 x10^3/uL (1.8-6.8); NEUTROPHILS % (AUTO) 56 % (42-75)
[2019-09-19 04:33] LABS: CHLORIDE 116 mmol/L (98-107)
[2019-09-19 04:43] LABS: ALANINE AMINOTRANSFERASE 11 U/L (12-78); ALBUMIN 2.3 g/dL (3.4-5.0); ALKALINE PHOSPHATASE 63 U/L (45-117); ANION GAP 6 mmol/L (5-15); BILIRUBIN,TOTAL 0.3 mg/dL (0.2-1.0); CALCIUM 7.6 mg/dL (8.5-10.1); CREATININE 2.05 mg/dL (0.55-1.02); TOTAL PROTEIN 5.4 g/dL (6.4-8.2)
[2019-09-19] MEDS: INSULIN LISPRO 100 UNITS/ML, PEN SQ-INSULIN SCH ×4 (07:00→21:00)
[2019-09-19] MEDS ORDERED: MAGNESIUM SULFATE PMX 2GM/50ML 50 ML IV ONE (07:30)
[2019-09-19 08:05] VITALS: BP 163/72
[2019-09-19] MEDS: GABAPENTIN 300 MG CAPSULE PO SCH ×2 (08:31→21:22)
[2019-09-19] MEDS: CARVEDILOL 25 MG TABLET PO SCH (08:32)
[2019-09-19] MEDS: ISOSORBIDE MONONITRATE ER 30 MG TABLET PO SCH (08:32)
[2019-09-19] MEDS: DOCUSATE 100 MG CAPSULE PO PRN (08:57)
[2019-09-19 11:21] VITALS: BP 147/62
[2019-09-19] MEDS ORDERED: FLU VACC QS2019-20 36MOS UP/PF 0.5 ML IM-VACC ONE (12:00)
[2019-09-19] MEDS ORDERED: PHARMACY MAY ADJ FOR RENAL FX MC PRN (14:00)
[2019-09-19 14:05] LABS: MICROSCOPIC INDICATED
[2019-09-19 14:15] LABS: CREATININE,URINE RANDOM 49.8 mg/dL
[2019-09-19] MEDS ORDERED: POTASSIUM CHLORIDE 20 MEQ TAB.ER.PRT PO ONE (16:30)
[2019-09-19] MEDS: CEFTRIAXONE PMX 1GM/50ML 50 ML IV SCH (16:51)
[2019-09-19] MEDS: RIVAROXABAN 10 MG TABLET PO SCH (16:52)
[2019-09-19 16:59] VITALS: BP 163/70
[2019-09-19 19:05] VITALS: BP 172/62
[2019-09-19] MEDS ORDERED: APIXABAN 5 MG TABLET PO SCH (20:00)
[2019-09-19] MEDS: ACETAMINOPHEN 325 MG TABLET PO PRN (21:22)
[2019-09-19] MEDS: ATORVASTATIN 40 MG TABLET PO SCH (21:22)
[2019-09-20 02:09] VITALS: BP 154/66
[2019-09-20 04:46] LABS: BASOPHILS # (AUTO) 0.04 x10^3/uL (0-0.1); BASOPHILS % (AUTO) 1 % (0-1); EOSINOPHILS # (AUTO) 0.71 x10^3/uL (0-0.4); EOSINOPHILS % (AUTO) 14 % (1-7); LYMPHOCYTES # (AUTO) 1.39 x10^3/uL (1-3.4); LYMPHOCYTES % (AUTO) 27 % (22-44); MD NO; MEAN CORPUSCULAR HEMOGLOBIN 25.9 pg (27.0-34.8); MEAN CORPUSCULAR HGB CONC 31.4 g/dL (32.4-35.8); MEAN CORPUSCULAR VOLUME 82.6 fL (80-100); MEAN PLATELET VOLUME 7.8 fL (7.4-10.4); MONOCYTES # (AUTO) 0.34 x10^3/uL (0.2-0.8); MONOCYTES % (AUTO) 7 % (2-9); NEUTROPHILS % (AUTO) 52 % (42-75); PLATELET COUNT 177 x10^3/uL (130-400); RED BLOOD COUNT 2.92 x10^6/uL (3.82-5.3); RED CELL DISTRIBUTION WIDTH 14.5 % (9.6-15.2)
[2019-09-20 04:58] LABS: ANION GAP 4 mmol/L (5-15); CALCIUM 8.1 mg/dL (8.5-10.1); CHLORIDE 119 mmol/L (98-107); CREATININE 1.99 mg/dL (0.55-1.02)
[2019-09-20] MEDS: INSULIN LISPRO 100 UNITS/ML, PEN SQ-INSULIN SCH ×4 (07:00→21:49)
[2019-09-20 08:28] VITALS: BP 188/71
[2019-09-20] MEDS ORDERED: APIXABAN 5 MG TABLET PO SCH (09:00)
[2019-09-20] MEDS ORDERED: IRON SUCROSE COMPLEX 100MG/5ML IV SCH (09:00)
[2019-09-20] MEDS: IRON SUCROSE COMPLEX 100MG/5ML IV SCH (09:47)
[2019-09-20] MEDS: CARVEDILOL 25 MG TABLET PO SCH (09:48)
[2019-09-20] MEDS: AMLODIPINE 10 MG TAB PO SCH (09:48)
[2019-09-20] MEDS: GABAPENTIN 300 MG CAPSULE PO SCH ×2 (09:48→21:50)
[2019-09-20] MEDS: APIXABAN 5 MG TABLET PO SCH ×2 (09:48→21:50)
[2019-09-20] MEDS: ISOSORBIDE MONONITRATE ER 30 MG TABLET PO SCH (09:48)
[2019-09-20 13:02] VITALS: BP 169/76
[2019-09-20] MEDS: CEFTRIAXONE PMX 1GM/50ML 50 ML IV SCH (17:35)
[2019-09-20] MEDS: FUROSEMIDE 20 MG TABLET PO SCH (18:36)
[2019-09-20 20:03] VITALS: BP 170/70
[2019-09-20] MEDS: ACETAMINOPHEN 325 MG TABLET PO PRN (20:59)
[2019-09-20] MEDS: ATORVASTATIN 40 MG TABLET PO SCH (21:50)
[2019-09-21 01:23] VITALS: BP 170/67
[2019-09-21 02:58] VITALS: BP 180/70
[2019-09-21] MEDS ORDERED: hydrALAzine 20 MG/ML, 1ML IV ONE (03:30)
[2019-09-21 05:40] VITALS: BP 163/73
[2019-09-21 06:44] LABS: BASOPHILS # (AUTO) 0.04 x10^3/uL (0-0.1); BASOPHILS % (AUTO) 1 % (0-1); EOSINOPHILS # (AUTO) 0.59 x10^3/uL (0-0.4); EOSINOPHILS % (AUTO) 11 % (1-7); LYMPHOCYTES # (AUTO) 1.41 x10^3/uL (1-3.4); LYMPHOCYTES % (AUTO) 27 % (22-44); MD NO; MEAN CORPUSCULAR HEMOGLOBIN 25.9 pg (27.0-34.8); MEAN CORPUSCULAR HGB CONC 32.1 g/dL (32.4-35.8); MEAN CORPUSCULAR VOLUME 80.8 fL (80-100); MEAN PLATELET VOLUME 7.6 fL (7.4-10.4); MONOCYTES # (AUTO) 0.33 x10^3/uL (0.2-0.8); MONOCYTES % (AUTO) 6 % (2-9); NEUTROPHILS # (AUTO) 2.86 x10^3/uL (1.8-6.8); NEUTROPHILS % (AUTO) 55 % (42-75); PLATELET COUNT 186 x10^3/uL (130-400); RED BLOOD COUNT 2.94 x10^6/uL (3.82-5.3); RED CELL DISTRIBUTION WIDTH 14.7 % (9.6-15.2)
[2019-09-21 06:50] LABS: ALBUMIN 2.3 g/dL (3.4-5.0); ANION GAP 6 mmol/L (5-15); CALCIUM 8.3 mg/dL (8.5-10.1); CHLORIDE 118 mmol/L (98-107); CREATININE 1.95 mg/dL (0.55-1.02)
[2019-09-21 06:56] VITALS: BP 170/68
[2019-09-21] MEDS: INSULIN LISPRO 100 UNITS/ML, PEN SQ-INSULIN SCH ×4 (07:00→20:40)
[2019-09-21] MEDS: GABAPENTIN 300 MG CAPSULE PO SCH ×2 (09:16→20:40)
[2019-09-21] MEDS: IRON SUCROSE COMPLEX 100MG/5ML IV SCH (09:16)
[2019-09-21] MEDS: ISOSORBIDE MONONITRATE ER 30 MG TABLET PO SCH (09:17)
[2019-09-21] MEDS: AMLODIPINE 10 MG TAB PO SCH (09:17)
[2019-09-21] MEDS: APIXABAN 5 MG TABLET PO SCH ×2 (09:18→20:40)
[2019-09-21] MEDS: CARVEDILOL 25 MG TABLET PO SCH (09:18)
[2019-09-21] MEDS: FUROSEMIDE 20 MG TABLET PO SCH ×2 (09:18→17:31)
[2019-09-21 12:48] VITALS: BP 166/69
[2019-09-21] MEDS: CEFTRIAXONE PMX 1GM/50ML 50 ML IV SCH (17:31)
[2019-09-21 20:09] VITALS: BP 176/65
[2019-09-21] MEDS: hydrALAzine 20 MG/ML, 1ML IV PRN (20:39)
[2019-09-21] MEDS: ACETAMINOPHEN 325 MG TABLET PO PRN (20:40)
[2019-09-21] MEDS: ATORVASTATIN 40 MG TABLET PO SCH (20:40)
[2019-09-21] MEDS: DOCUSATE 100 MG CAPSULE PO PRN (20:56)
[2019-09-22] VITALS (7 sets, daily range): BP systolic 156–183; BP diastolic 61–75
[2019-09-22] MEDS: hydrALAzine 20 MG/ML, 1ML IV PRN (04:44)
[2019-09-22] MEDS: INSULIN LISPRO 100 UNITS/ML, PEN SQ-INSULIN SCH ×4 (07:00→21:02)
[2019-09-22 08:15] LABS: ANION GAP 6 mmol/L (5-15); CALCIUM 8.7 mg/dL (8.5-10.1); CHLORIDE 117 mmol/L (98-107); CREATININE 1.96 mg/dL (0.55-1.02)
[2019-09-22] MEDS: ISOSORBIDE MONONITRATE ER 30 MG TABLET PO SCH (08:33)
[2019-09-22] MEDS: CARVEDILOL 25 MG TABLET PO SCH (08:34)
[2019-09-22] MEDS: GABAPENTIN 300 MG CAPSULE PO SCH ×2 (08:34→21:08)
[2019-09-22] MEDS: IRON SUCROSE COMPLEX 100MG/5ML IV SCH (08:34)
[2019-09-22] MEDS: APIXABAN 5 MG TABLET PO SCH ×2 (08:34→21:08)
[2019-09-22] MEDS: AMLODIPINE 10 MG TAB PO SCH (08:35)
[2019-09-22] MEDS: FUROSEMIDE 20 MG TABLET PO SCH ×2 (08:35→17:06)
[2019-09-22] MEDS: DOCUSATE 100 MG CAPSULE PO PRN (17:06)
[2019-09-22] MEDS: AMLODIPINE 5 MG TABLET PO SCH (21:08)
[2019-09-22] MEDS: ACETAMINOPHEN 325 MG TABLET PO PRN (21:08)
[2019-09-22] MEDS: ATORVASTATIN 40 MG TABLET PO SCH (21:08)
[2019-09-23 03:06] VITALS: BP 164/71
[2019-09-23 05:48] LABS: ANION GAP 6 mmol/L (5-15); CALCIUM 8.3 mg/dL (8.5-10.1); CHLORIDE 117 mmol/L (98-107)
[2019-09-23 05:49] LABS: CREATININE 1.98 mg/dL (0.55-1.02)
[2019-09-23 06:48] VITALS: BP 163/68
[2019-09-23] MEDS: INSULIN LISPRO 100 UNITS/ML, PEN SQ-INSULIN SCH ×4 (07:00→20:49)
[2019-09-23] MEDS: IRON SUCROSE COMPLEX 100MG/5ML IV SCH (08:49)
[2019-09-23] MEDS: APIXABAN 5 MG TABLET PO SCH ×2 (08:53→20:48)
[2019-09-23] MEDS: GABAPENTIN 300 MG CAPSULE PO SCH ×2 (08:54→20:48)
[2019-09-23] MEDS: FUROSEMIDE 20 MG TABLET PO SCH ×2 (08:54→17:08)
[2019-09-23] MEDS: AMLODIPINE 5 MG TABLET PO SCH ×2 (08:54→20:48)
[2019-09-23] MEDS: CARVEDILOL 25 MG TABLET PO SCH (08:54)
[2019-09-23] MEDS: ISOSORBIDE MONONITRATE ER 30 MG TABLET PO SCH (08:54)
[2019-09-23] MEDS: DOCUSATE 100 MG CAPSULE PO PRN ×2 (08:54→22:01)
[2019-09-23 12:27] VITALS: BP 144/62
[2019-09-23 20:47] VITALS: BP 187/68
[2019-09-23] MEDS: ATORVASTATIN 40 MG TABLET PO SCH (20:48)
[2019-09-23 22:02] VITALS: BP 171/75
[2019-09-24 01:27] VITALS: BP 170/64
[2019-09-24 06:32] LABS: CALCIUM 8.3 mg/dL (8.5-10.1); CHLORIDE 115 mmol/L (98-107)
[2019-09-24 06:38] LABS: ALANINE AMINOTRANSFERASE 16 U/L (12-78); ALBUMIN 2.4 g/dL (3.4-5.0); ALKALINE PHOSPHATASE 59 U/L (45-117); ANION GAP 6 mmol/L (5-15); BILIRUBIN,TOTAL 0.2 mg/dL (0.2-1.0); CREATININE 2.06 mg/dL (0.55-1.02); TOTAL PROTEIN 5.5 g/dL (6.4-8.2)
[2019-09-24] MEDS: INSULIN LISPRO 100 UNITS/ML, PEN SQ-INSULIN SCH ×4 (07:00→20:37)
[2019-09-24 08:25] VITALS: BP 152/68
[2019-09-24] MEDS: ISOSORBIDE MONONITRATE ER 30 MG TABLET PO SCH (08:34)
[2019-09-24] MEDS: CARVEDILOL 25 MG TABLET PO SCH (08:34)
[2019-09-24] MEDS: FUROSEMIDE 20 MG TABLET PO SCH ×2 (08:34→17:13)
[2019-09-24] MEDS: AMLODIPINE 5 MG TABLET PO SCH ×2 (08:34→20:37)
[2019-09-24] MEDS: GABAPENTIN 300 MG CAPSULE PO SCH ×2 (08:35→20:37)
[2019-09-24] MEDS: APIXABAN 5 MG TABLET PO SCH ×2 (08:35→20:37)
[2019-09-24] MEDS ORDERED: POLYETHYLENE GLYCOL 17 GM PACKET ONE (10:07)
[2019-09-24] MEDS: DOCUSATE 100 MG CAPSULE PO PRN ×2 (10:19→20:37)
[2019-09-24] MEDS: POLYETHYLENE GLYCOL 17 GM PACKET PO SCH (10:20)
[2019-09-24 13:27] VITALS: BP 145/73
[2019-09-24 19:53] VITALS: BP 167/66
[2019-09-24] MEDS: ATORVASTATIN 40 MG TABLET PO SCH (20:37)
[2019-09-24] MEDS ORDERED: ISOSORBIDE MONONITRATE ER 30 MG TABLET PO SCH (21:00)
[2019-09-25 03:20] VITALS: BP 162/64
[2019-09-25 05:52] LABS: ANION GAP 7 mmol/L (5-15); CALCIUM 8.2 mg/dL (8.5-10.1); CHLORIDE 115 mmol/L (98-107); CREATININE 2.09 mg/dL (0.55-1.02)
[2019-09-25] MEDS: BISACODYL 10 MG SUPP PR PRN (06:13)
[2019-09-25] MEDS: INSULIN LISPRO 100 UNITS/ML, PEN SQ-INSULIN SCH ×4 (07:00→21:00)
[2019-09-25 08:06] VITALS: BP 165/66
[2019-09-25] MEDS: APIXABAN 5 MG TABLET PO SCH ×2 (08:35→21:17)
[2019-09-25] MEDS: ISOSORBIDE MONONITRATE ER 30 MG TABLET PO SCH (08:36)
[2019-09-25] MEDS: CARVEDILOL 25 MG TABLET PO SCH (08:37)
[2019-09-25] MEDS: GABAPENTIN 300 MG CAPSULE PO SCH ×2 (08:37→21:17)
[2019-09-25] MEDS: POLYETHYLENE GLYCOL 17 GM PACKET PO SCH (08:37)
[2019-09-25] MEDS: FUROSEMIDE 20 MG TABLET PO SCH ×2 (08:37→17:00)
[2019-09-25] MEDS: AMLODIPINE 5 MG TABLET PO SCH ×2 (08:37→21:17)
[2019-09-25] MEDS: LOSARTAN 25MG TABLET PO SCH (13:00)
[2019-09-25] MEDS ORDERED: DOXAZOSIN 1MG TABLET PO SCH (13:30)
[2019-09-25 14:28] VITALS: BP 162/69
[2019-09-25 20:29] VITALS: BP 174/69
[2019-09-25] MEDS: ATORVASTATIN 40 MG TABLET PO SCH (21:17)
[2019-09-26 02:30] VITALS: BP 165/75
[2019-09-26] MEDS: INSULIN LISPRO 100 UNITS/ML, PEN SQ-INSULIN SCH ×4 (07:00→20:41)
[2019-09-26 08:26] VITALS: BP 169/65
[2019-09-26] MEDS: FUROSEMIDE 20 MG TABLET PO SCH ×2 (08:33→17:00)
[2019-09-26] MEDS: LOSARTAN 25MG TABLET PO SCH (08:34)
[2019-09-26] MEDS: APIXABAN 5 MG TABLET PO SCH ×2 (08:34→20:41)
[2019-09-26] MEDS: POLYETHYLENE GLYCOL 17 GM PACKET PO SCH (08:34)
[2019-09-26] MEDS: ISOSORBIDE MONONITRATE ER 30 MG TABLET PO SCH (08:34)
[2019-09-26] MEDS: CARVEDILOL 25 MG TABLET PO SCH (08:34)
[2019-09-26] MEDS: DOCUSATE 100 MG CAPSULE PO PRN (08:35)
[2019-09-26] MEDS: AMLODIPINE 5 MG TABLET PO SCH ×2 (08:35→20:41)
[2019-09-26] MEDS: GABAPENTIN 300 MG CAPSULE PO SCH ×2 (08:35→20:41)
[2019-09-26 10:30] LABS: CREATININE CLEARANCE,URINE 19.6 (70.0-140.0)
[2019-09-26] MEDS: DOXAZOSIN 2MG TABLET PO SCH (11:00)
[2019-09-26] MEDS: BISACODYL 10 MG SUPP PR PRN (12:23)
[2019-09-26 13:35] VITALS: BP 150/58
[2019-09-26 14:00] VITALS: BP 158/67
[2019-09-26 14:52] VITALS: BP 122/68
[2019-09-26 19:32] VITALS: BP 160/67
[2019-09-26] MEDS: ATORVASTATIN 40 MG TABLET PO SCH (20:41)
[2019-09-27 01:52] VITALS: BP 146/69
[2019-09-27] MEDS: INSULIN LISPRO 100 UNITS/ML, PEN SQ-INSULIN SCH ×4 (07:00→21:23)
[2019-09-27 08:32] VITALS: BP 175/63
[2019-09-27] MEDS ORDERED: LOSARTAN 50MG TABLET PO SCH ×2 (09:00→21:00)
[2019-09-27] MEDS: POLYETHYLENE GLYCOL 17 GM PACKET PO SCH (09:00)
[2019-09-27] MEDS ORDERED: LOSARTAN 25MG TABLET PO SCH (09:29)
[2019-09-27] MEDS: GABAPENTIN 300 MG CAPSULE PO SCH ×2 (09:41→21:22)
[2019-09-27] MEDS: APIXABAN 5 MG TABLET PO SCH ×2 (09:41→21:22)
[2019-09-27] MEDS: DOXAZOSIN 2MG TABLET PO SCH (09:41)
[2019-09-27] MEDS: CARVEDILOL 25 MG TABLET PO SCH (09:41)
[2019-09-27] MEDS: ISOSORBIDE MONONITRATE ER 30 MG TABLET PO SCH (09:41)
[2019-09-27] MEDS: FUROSEMIDE 20 MG TABLET PO SCH ×2 (09:41→16:56)
[2019-09-27] MEDS: AMLODIPINE 5 MG TABLET PO SCH ×2 (09:58→21:22)
[2019-09-27 14:00] VITALS: BP 137/57
[2019-09-27 20:56] VITALS: BP 163/56
[2019-09-27] MEDS: ATORVASTATIN 40 MG TABLET PO SCH (21:22)
[2019-09-27] MEDS: LOSARTAN 25MG TABLET PO SCH (21:22)
[2019-09-28 03:41] VITALS: BP 133/65
[2019-09-28] MEDS: INSULIN LISPRO 100 UNITS/ML, PEN SQ-INSULIN SCH ×4 (07:00→20:23)
[2019-09-28 07:08] LABS: BASOPHILS # (AUTO) 0.04 x10^3/uL (0-0.1); BASOPHILS % (AUTO) 1 % (0-1); EOSINOPHILS # (AUTO) 0.66 x10^3/uL (0-0.4); EOSINOPHILS % (AUTO) 11 % (1-7); LYMPHOCYTES % (AUTO) 28 % (22-44); MD NO; MEAN CORPUSCULAR HEMOGLOBIN 25.7 pg (27.0-34.8); MEAN CORPUSCULAR HGB CONC 31.7 g/dL (32.4-35.8); MEAN CORPUSCULAR VOLUME 81.2 fL (80-100); MEAN PLATELET VOLUME 8.3 fL (7.4-10.4); MONOCYTES # (AUTO) 0.39 x10^3/uL (0.2-0.8); MONOCYTES % (AUTO) 6 % (2-9); NEUTROPHILS # (AUTO) 3.32 x10^3/uL (1.8-6.8); NEUTROPHILS % (AUTO) 54 % (42-75); PLATELET COUNT 175 x10^3/uL (130-400); RED BLOOD COUNT 3.01 x10^6/uL (3.82-5.3); RED CELL DISTRIBUTION WIDTH 15.7 % (9.6-15.2)
[2019-09-28 07:19] LABS: CHLORIDE 115 mmol/L (98-107)
[2019-09-28 07:24] LABS: ALBUMIN 2.3 g/dL (3.4-5.0); ANION GAP 8 mmol/L (5-15); CALCIUM 8.5 mg/dL (8.5-10.1); CREATININE 2.06 mg/dL (0.55-1.02)
[2019-09-28 07:50] VITALS: BP 171/77
[2019-09-28] MEDS: FUROSEMIDE 20 MG TABLET PO SCH ×2 (07:51→16:24)
[2019-09-28] MEDS: LOSARTAN 25MG TABLET PO SCH ×2 (07:51→20:25)
[2019-09-28] MEDS: APIXABAN 5 MG TABLET PO SCH ×2 (07:51→20:26)
[2019-09-28] MEDS: CARVEDILOL 25 MG TABLET PO SCH (07:51)
[2019-09-28] MEDS: ISOSORBIDE MONONITRATE ER 30 MG TABLET PO SCH (07:51)
[2019-09-28] MEDS: GABAPENTIN 300 MG CAPSULE PO SCH ×2 (07:51→20:25)
[2019-09-28] MEDS: AMLODIPINE 5 MG TABLET PO SCH ×2 (07:51→20:26)
[2019-09-28] MEDS: DOXAZOSIN 2MG TABLET PO SCH (07:51)
[2019-09-28] MEDS: POLYETHYLENE GLYCOL 17 GM PACKET PO SCH (07:52)
[2019-09-28 12:05] VITALS: BP 132/57
[2019-09-28 20:14] VITALS: BP 164/72
[2019-09-28] MEDS: ATORVASTATIN 40 MG TABLET PO SCH (20:25)
[2019-09-29 00:05] VITALS: BP 147/64
[2019-09-29] MEDS: INSULIN LISPRO 100 UNITS/ML, PEN SQ-INSULIN SCH ×4 (07:00→21:00)
[2019-09-29 07:34] VITALS: BP 173/64
[2019-09-29] MEDS: ISOSORBIDE MONONITRATE ER 30 MG TABLET PO SCH (08:00)
[2019-09-29] MEDS: APIXABAN 5 MG TABLET PO SCH (08:00)
[2019-09-29] MEDS: ACETAMINOPHEN 325 MG TABLET PO PRN (08:00)
[2019-09-29] MEDS: POLYETHYLENE GLYCOL 17 GM PACKET PO SCH (08:00)
[2019-09-29] MEDS: FUROSEMIDE 20 MG TABLET PO SCH ×2 (08:01→16:33)
[2019-09-29] MEDS: AMLODIPINE 5 MG TABLET PO SCH ×2 (08:01→22:33)
[2019-09-29] MEDS: DOXAZOSIN 2MG TABLET PO SCH (08:01)
[2019-09-29] MEDS: GABAPENTIN 300 MG CAPSULE PO SCH ×2 (08:01→22:33)
[2019-09-29] MEDS: CARVEDILOL 25 MG TABLET PO SCH (08:01)
[2019-09-29] MEDS: LOSARTAN 25MG TABLET PO SCH ×2 (08:01→22:33)
[2019-09-29] MEDS: DOCUSATE 100 MG CAPSULE PO PRN (08:02)
[2019-09-29 13:40] VITALS: BP 129/57
[2019-09-29] MEDS ORDERED: HEPARIN 5,000 UNITS/ML, 1ML IV PRN (20:00)
[2019-09-29] MEDS ORDERED: HEPARIN 5,000 UNITS/ML, 1ML IV ONE (20:00)
[2019-09-29] MEDS ORDERED: HEPARIN 25,000 UNITS/500ML PMX 500 ML IV PRN (20:00)
[2019-09-29 20:06] VITALS: BP 162/85
[2019-09-29] MEDS: ATORVASTATIN 40 MG TABLET PO SCH (22:33)
[2019-09-30 01:16] VITALS: BP 147/64
[2019-09-30 05:34] LABS: BASOPHILS # (AUTO) 0.04 x10^3/uL (0-0.1); BASOPHILS % (AUTO) 1 % (0-1); EOSINOPHILS % (AUTO) 12 % (1-7); LYMPHOCYTES # (AUTO) 1.73 x10^3/uL (1-3.4); LYMPHOCYTES % (AUTO) 29 % (22-44); MD NO; MEAN CORPUSCULAR HEMOGLOBIN 26.3 pg (27.0-34.8); MEAN CORPUSCULAR HGB CONC 32.6 g/dL (32.4-35.8); MEAN CORPUSCULAR VOLUME 80.8 fL (80-100); MONOCYTES % (AUTO) 7 % (2-9); NEUTROPHILS # (AUTO) 3.15 x10^3/uL (1.8-6.8); NEUTROPHILS % (AUTO) 52 % (42-75); PLATELET COUNT 181 x10^3/uL (130-400); RED BLOOD COUNT 3.13 x10^6/uL (3.82-5.3); RED CELL DISTRIBUTION WIDTH 15.6 % (9.6-15.2)
[2019-09-30 05:47] LABS: ANION GAP 7 mmol/L (5-15); CALCIUM 8.8 mg/dL (8.5-10.1); CHLORIDE 114 mmol/L (98-107); CREATININE 2.15 mg/dL (0.55-1.02)
[2019-09-30] MEDS: INSULIN LISPRO 100 UNITS/ML, PEN SQ-INSULIN SCH ×4 (07:49→21:30)
[2019-09-30 07:57] VITALS: BP 158/65
[2019-09-30] MEDS ORDERED: ENOXAPARIN 80 MG/0.8 ML SQ ONE (09:00)
[2019-09-30] MEDS: FUROSEMIDE 20 MG TABLET PO SCH ×2 (09:02→16:35)
[2019-09-30] MEDS: GABAPENTIN 300 MG CAPSULE PO SCH ×2 (09:02→21:29)
[2019-09-30] MEDS: DOXAZOSIN 2MG TABLET PO SCH (09:02)
[2019-09-30] MEDS: ISOSORBIDE MONONITRATE ER 30 MG TABLET PO SCH (09:02)
[2019-09-30] MEDS: LOSARTAN 25MG TABLET PO SCH ×2 (09:02→21:29)
[2019-09-30] MEDS: CARVEDILOL 25 MG TABLET PO SCH (09:02)
[2019-09-30] MEDS: POLYETHYLENE GLYCOL 17 GM PACKET PO SCH (09:03)
[2019-09-30] MEDS: niFEDipine ER 30 MG TABLET.ER PO SCH ×2 (10:11→22:07)
[2019-09-30 10:46] VITALS: BP 142/52
[2019-09-30 15:30] VITALS: BP 134/58
[2019-09-30] MEDS: POTASSIUM CHLORIDE 20 MEQ TAB.ER.PRT PO SCH (17:25)
[2019-09-30 21:25] VITALS: BP 151/65
[2019-09-30] MEDS: ATORVASTATIN 40 MG TABLET PO SCH (21:29)
[2019-10-01 04:00] VITALS: BP 131/52
[2019-10-01 05:48] LABS: BASOPHILS # (AUTO) 0.06 x10^3/uL (0-0.1); BASOPHILS % (AUTO) 1 % (0-1); EOSINOPHILS % (AUTO) 11 % (1-7); LYMPHOCYTES % (AUTO) 29 % (22-44); MD NO; MEAN CORPUSCULAR VOLUME 81.2 fL (80-100); MEAN PLATELET VOLUME 9.3 fL (7.4-10.4); MONOCYTES # (AUTO) 0.35 x10^3/uL (0.2-0.8); MONOCYTES % (AUTO) 6 % (2-9); NEUTROPHILS # (AUTO) 2.88 x10^3/uL (1.8-6.8); NEUTROPHILS % (AUTO) 53 % (42-75); PLATELET COUNT 168 x10^3/uL (130-400); RED BLOOD COUNT 3.26 x10^6/uL (3.82-5.3); RED CELL DISTRIBUTION WIDTH 15.9 % (9.6-15.2)
[2019-10-01 05:54] LABS: ANION GAP 5 mmol/L (5-15); CALCIUM 8.6 mg/dL (8.5-10.1); CHLORIDE 112 mmol/L (98-107); CREATININE 2.24 mg/dL (0.55-1.02)
[2019-10-01] MEDS: INSULIN LISPRO 100 UNITS/ML, PEN SQ-INSULIN SCH ×4 (07:00→21:48)
[2019-10-01 07:11] VITALS: BP 128/58
[2019-10-01] MEDS: CARVEDILOL 25 MG TABLET PO SCH (07:30)
[2019-10-01] MEDS: GABAPENTIN 300 MG CAPSULE PO SCH ×2 (07:30→21:48)
[2019-10-01] MEDS: ISOSORBIDE MONONITRATE ER 30 MG TABLET PO SCH (07:30)
[2019-10-01] MEDS: POTASSIUM CHLORIDE 20 MEQ TAB.ER.PRT PO SCH (07:30)
[2019-10-01] MEDS: FUROSEMIDE 20 MG TABLET PO SCH ×2 (07:30→16:47)
[2019-10-01] MEDS: DOXAZOSIN 2MG TABLET PO SCH (07:30)
[2019-10-01] MEDS: LOSARTAN 25MG TABLET PO SCH ×2 (07:30→21:49)
[2019-10-01] MEDS: POLYETHYLENE GLYCOL 17 GM PACKET PO SCH (07:30)
[2019-10-01] MEDS: niFEDipine ER 30 MG TABLET.ER PO SCH ×2 (07:31→21:48)
[2019-10-01 07:57] LABS: INTERNATIONAL NORMALIZED RATIO 1.09 (0.93-1.1); PROTHROMBIN TIME 11.4 Seconds (9.6-11.5)
[2019-10-01] MEDS ORDERED: FLUMAZENIL 0.1 MG/1 ML, 5ML ONE (10:23)
[2019-10-01] MEDS ORDERED: MIDAZOLAM 1 MG/ML, 5ML ONE (10:23)
[2019-10-01] MEDS ORDERED: NALOXONE 1 MG/ML, 2ML ONE (10:23)
[2019-10-01] MEDS ORDERED: FENTANYL PF 100 MCG/2ML ONE (10:23)
[2019-10-01 12:37] VITALS: BP 128/67
[2019-10-01 16:27] LABS: BASOPHILS # (AUTO) 0.03 x10^3/uL (0-0.1); BASOPHILS % (AUTO) 1 % (0-1); EOSINOPHILS # (AUTO) 0.51 x10^3/uL (0-0.4); EOSINOPHILS % (AUTO) 10 % (1-7); LYMPHOCYTES # (AUTO) 1.09 x10^3/uL (1-3.4); LYMPHOCYTES % (AUTO) 22 % (22-44); MD NO; MEAN CORPUSCULAR HEMOGLOBIN 25.9 pg (27.0-34.8); MEAN CORPUSCULAR HGB CONC 31.7 g/dL (32.4-35.8); MEAN CORPUSCULAR VOLUME 81.8 fL (80-100); MEAN PLATELET VOLUME 8.8 fL (7.4-10.4); MONOCYTES # (AUTO) 0.27 x10^3/uL (0.2-0.8); MONOCYTES % (AUTO) 6 % (2-9); NEUTROPHILS # (AUTO) 3.02 x10^3/uL (1.8-6.8); NEUTROPHILS % (AUTO) 61 % (42-75); PLATELET COUNT 174 x10^3/uL (130-400); RED BLOOD COUNT 3.07 x10^6/uL (3.82-5.3); RED CELL DISTRIBUTION WIDTH 15.9 % (9.6-15.2)
[2019-10-01 19:11] VITALS: BP 141/65
[2019-10-01] MEDS: ATORVASTATIN 40 MG TABLET PO SCH (21:48)
[2019-10-02 00:57] VITALS: BP 145/76
[2019-10-02 07:56] VITALS: BP 147/72
[2019-10-02 08:05] LABS: BASOPHILS # (AUTO) 0.05 x10^3/uL (0-0.1); BASOPHILS % (AUTO) 1 % (0-1); EOSINOPHILS # (AUTO) 0.63 x10^3/uL (0-0.4); EOSINOPHILS % (AUTO) 11 % (1-7); LYMPHOCYTES # (AUTO) 1.61 x10^3/uL (1-3.4); LYMPHOCYTES % (AUTO) 28 % (22-44); MD NO; MEAN CORPUSCULAR HGB CONC 31.9 g/dL (32.4-35.8); MEAN CORPUSCULAR VOLUME 81.5 fL (80-100); MEAN PLATELET VOLUME 8.5 fL (7.4-10.4); MONOCYTES # (AUTO) 0.38 x10^3/uL (0.2-0.8); MONOCYTES % (AUTO) 7 % (2-9); NEUTROPHILS % (AUTO) 54 % (42-75); PLATELET COUNT 169 x10^3/uL (130-400); RED BLOOD COUNT 3.31 x10^6/uL (3.82-5.3)
[2019-10-02 08:16] LABS: ALANINE AMINOTRANSFERASE 11 U/L (12-78); ALBUMIN 2.3 g/dL (3.4-5.0); ANION GAP 5 mmol/L (5-15); CALCIUM 8.5 mg/dL (8.5-10.1); CHLORIDE 114 mmol/L (98-107); CREATININE 2.28 mg/dL (0.55-1.02)
[2019-10-02 08:18] LABS: ALKALINE PHOSPHATASE 80 U/L (45-117); BILIRUBIN,TOTAL 0.3 mg/dL (0.2-1.0); TOTAL PROTEIN 5.6 g/dL (6.4-8.2)
[2019-10-02] MEDS: LOSARTAN 25MG TABLET PO SCH (08:43)
[2019-10-02] MEDS: GABAPENTIN 300 MG CAPSULE PO SCH (08:43)
[2019-10-02] MEDS: POLYETHYLENE GLYCOL 17 GM PACKET PO SCH (08:43)
[2019-10-02] MEDS: niFEDipine ER 30 MG TABLET.ER PO SCH (08:43)
[2019-10-02] MEDS: DOXAZOSIN 2MG TABLET PO SCH (08:44)
[2019-10-02] MEDS: INSULIN LISPRO 100 UNITS/ML, PEN SQ-INSULIN SCH ×3 (08:44→16:50)
[2019-10-02] MEDS: ISOSORBIDE MONONITRATE ER 30 MG TABLET PO SCH (08:44)
[2019-10-02] MEDS: CARVEDILOL 25 MG TABLET PO SCH (08:44)
[2019-10-02] MEDS: POTASSIUM CHLORIDE 20 MEQ TAB.ER.PRT PO SCH (08:44)
[2019-10-02] MEDS: FUROSEMIDE 20 MG TABLET PO SCH ×2 (08:44→16:49)
[2019-10-02] MEDS ORDERED: FURO20TA3 PO ×2 (11:49)
[2019-10-02] MEDS ORDERED: LOSA25TA25 PO (11:49)
[2019-10-02] MEDS ORDERED: NIFE30TA13 PO (11:49)
[2019-10-02] MEDS ORDERED: DOXA2TAB9 PO (11:49)
[2019-10-02] MEDS ORDERED: APIX5TAB PO (11:57)
[2019-10-02 13:59] VITALS: BP 144/72
[2019-10-02 19:03] VITALS: BP 143/64
[2019-10-02] MEDS ORDERED: APIXABAN 5 MG TABLET PO SCH (21:00)
[2019-10-31] MEDS ORDERED: GABA600T7 PO (14:56)
[2019-10-31] MEDS ORDERED: CARV3.122 PO (15:12)
[2019-10-31] MEDS ORDERED: [UNRECOGNIZED DRUG - OTHER] (15:12)
[2019-11-03] MEDS ORDERED: CIPR500T87 PO ×2 (12:33)
[2019-11-03] MEDS ORDERED: LEVO500T47 PO (15:53)
[2019-11-03] MEDS ORDERED: LACT1TAB13 PO (15:53)
[2020-01-30] MEDS ORDERED: LORA10TA41 PO (16:12)
== END 2019-10-02 19:39 | disposition home health service (06) | DRG 682 ==
LOC: ED 14:08 → EDIP 14:48 → 4EST 16:00 → 3N 09-30 10:30 → 3E 09-30 21:35 → 3N 09-30 21:35
PROVIDERS: ADMIT Family Medicine; ATTEND Internal Medicine
PROC: 0TB13ZX Excision of Left Kidney, Percutaneous Approach, Diagnostic (ICD-10-PCS; principal; 2019-10-01)
DX: N17.9 Acute kidney failure, unspecified (principal); I50.33 Acute on chronic diastolic (congestive) heart failure; I26.99 Other pulmonary embolism without acute cor pulmonale; I82.622 Acute embolism and thrombosis of deep veins of left upper extremity; I13.0 Hypertensive heart and chronic kidney disease with heart failure and stage 1 through stage 4 chronic kidney disease, or unspecified chronic kidney disease; D68.69 Other thrombophilia; N39.0 Urinary tract infection, site not specified; J98.11 Atelectasis; I69.354 Hemiplegia and hemiparesis following cerebral infarction affecting left non-dominant side; E87.2 Acidosis; E87.5 Hyperkalemia; E78.5 Hyperlipidemia, unspecified; D63.8 Anemia in other chronic diseases classified elsewhere; D50.9 Iron deficiency anemia, unspecified; N18.4 Chronic kidney disease, stage 4 (severe); M19.90 Unspecified osteoarthritis, unspecified site; K62.89 Other specified diseases of anus and rectum; K52.9 Noninfective gastroenteritis and colitis, unspecified; E11.22 Type 2 diabetes mellitus with diabetic chronic kidney disease; E78.00 Pure hypercholesterolemia, unspecified; Z79.01 Long term (current) use of anticoagulants; Z79.84 Long term (current) use of oral hypoglycemic drugs; Z82.49 Family history of ischemic heart disease and other diseases of the circulatory system; Z85.850 Personal history of malignant neoplasm of thyroid; Z83.3 Family history of diabetes mellitus; Z86.711 Personal history of pulmonary embolism; Z87.441 Personal history of nephrotic syndrome; Z87.891 Personal history of nicotine dependence; Z90.49 Acquired absence of other specified parts of digestive tract; Z98.51 Tubal ligation status; Z98.1 Arthrodesis status; Z88.6 Allergy status to analgesic agent
CPT/HCPCS: 36415; 50200; 71045; 74176; 76770; 77012; 80048; 80053; 80069; 81001; 82306; 82436; 82565; 82570; 82728; 82962; 83036; 83520; 83540; 83550; 83735; 83880; 83883; 83970; 84100; 84133; 84155; 84156; 84165; 84166; 84300; 84443; 84466; 84484; 85025; 85520; 85610; 85730; 86038; 86160; 86162; 86256; 86335; 86704; 86706; 86708; 86803; 87086; 87340; 88300; 88305; 88313; 88346; 88348; 88350; 90686; 93005; 93306; 93975; 99156; 99157; 99285; G0378; J0696; J1650; J1756; J2250; J3010; J0360; J1815; J2310; J3475; J7120

== ENCOUNTER 2019-12-01 16:32 | Inpatient (IN) | payer MEDICARE ==
[~2019-12-01] VITALS: Ht 165.1 cm; Wt 80.0 kg
[~2019-12-01 16:32] MED LIST changes: +AMLO10TA8 PO; +APIX5TAB PO; +ATOR40TA78 PO; +CARV20CP PO; +CIPR500T87 PO; +DOXA2TAB9 PO; +FURO20TA3 PO; +GABA600T7 PO; +ISOS120T4 PO; +LACT1TAB13 PO; +LEVO500T47 PO; +LOSA25TA25 PO; +METF10007 PO; +NIFE30TA13 PO; +RIVA15TA PO; +[UNRECOGNIZED DRUG - OTHER]
--- NOTE | 2019-12-01 16:39 | NUR ---
69 Y/O FEMALE BIB AMBULANCE WITH C/O SYNCOPE. PER REPORT PT WAS [facility]. PT HAD SYNCOPAL EVENT. EMS ON ARRIVAL, PT BP WAS 60/40S PALP. PT WAS HELPED TO STAND UP OUT OF WHEELCHAIR, PT PASSED OUT. PT WAS PLACED ON GURNEY AND PUT IN TRENDELENBERG, PT BP WENT UP TO 110 SYS. PIV ESTABLISHED, IVF OF NS INFUSING. PT BP IS POSTIONAL PER EMS. PER REPORT PT SLEEPS IN A HOSP BED AND WHEN SHE GETS UP TO HER WHEELCHAIR IN THE MORNINGS SHE FEELS THE SAME. FSBS 130. DAUGHTER AND GRANDAUGHTER BEDSIDE. PT PLACED ON CONT PULSE OX,NIBP,PROCESSING ASSOCIATE. NO C/O N/V/D, TRAUMA, CP, SOB. PT STATES "I DON'T REMEMBER PASSING OUT."
[2019-12-01 17:47] LABS: BASOPHILS # (AUTO) 0.02 x10^3/uL (0-0.1); BASOPHILS % (AUTO) 0 % (0-1); EOSINOPHILS # (AUTO) 0.71 x10^3/uL (0-0.4); EOSINOPHILS % (AUTO) 9 % (1-7); LYMPHOCYTES % (AUTO) 16 % (22-44); MD NO; MEAN CORPUSCULAR HEMOGLOBIN 26.8 pg (27.0-34.8); MEAN CORPUSCULAR VOLUME 81.2 fL (80-100); MEAN PLATELET VOLUME 8.2 fL (7.4-10.4); MONOCYTES # (AUTO) 0.27 x10^3/uL (0.2-0.8); MONOCYTES % (AUTO) 4 % (2-9); NEUTROPHILS # (AUTO) 5.52 x10^3/uL (1.8-6.8); NEUTROPHILS % (AUTO) 72 % (42-75); PLATELET COUNT 172 x10^3/uL (130-400); RED BLOOD COUNT 3.76 x10^6/uL (3.82-5.3); RED CELL DISTRIBUTION WIDTH 16.2 % (9.6-15.2)
--- NOTE | 2019-12-01 17:48 | NUR ---
PT RESTING ON [facility]HAELA KAUFMAN. PT VERBALIZED UNDERSTANDING OF POC. NO NEEDS REQUESTED AT THIS TIME.
[2019-12-01] MEDS ORDERED: CARV12.52 PO (17:52)
[2019-12-01] MEDS ORDERED: CARV25TA12 PO (17:52)
--- NOTE | 2019-12-01 17:52 | NUR ---
DAUGHTER MANDY [phone]
[2019-12-01 17:59] LABS: INTERNATIONAL NORMALIZED RATIO 1.07 (0.93-1.1); PROTHROMBIN TIME 11.3 Seconds (9.6-11.5)
[2019-12-01 18:00] LABS: ALANINE AMINOTRANSFERASE 22 U/L (12-78); ALBUMIN 2.7 g/dL (3.4-5.0); ANION GAP 7 mmol/L (5-15); CALCIUM 8.6 mg/dL (8.5-10.1); CHLORIDE 111 mmol/L (98-107); CREATININE 2.44 mg/dL (0.55-1.02)
[2019-12-01 18:10] LABS: ALKALINE PHOSPHATASE 74 U/L (45-117); BILIRUBIN,TOTAL 0.3 mg/dL (0.2-1.0); TOTAL PROTEIN 6.4 g/dL (6.4-8.2)
--- NOTE | 2019-12-01 19:01 | NUR ---
BEDSIDE REPORT TO LEAH ANGLIN. PT RESTING ON [facility].NADN. MARC
--- NOTE | 2019-12-01 19:14 | NUR ---
pt resting on gurney, no needs at this time. no hypotension noted.
--- NOTE | 2019-12-01 19:39 | NUR ---
pt [facility]'ed for urine. tolerated well. urine walked to lab. diaper removed and pt cleaned and placed on absorbant pads.
[2019-12-01 20:06] LABS: MICROSCOPIC INDICATED
[2019-12-01 20:09] LABS: CULTURE INDICATED? YES
--- NOTE | 2019-12-01 20:13 | NUR ---
per er law, no blood cultures prior to antibiotics.
--- NOTE | 2019-12-01 20:15 | NUR ---
pt cleaned of a small soft, formed BM and placed on new absorbant pad
[2019-12-01] MEDS ORDERED: CEFTRIAXONE PMX 1GM/50ML 50 ML ONE (20:18)
[2019-12-01] MEDS ORDERED: CEFTRIAXONE PMX 1GM/50ML 50 ML IV ONE (20:30)
--- NOTE | 2019-12-01 20:49 | NUR ---
report to janet christie
[2019-12-01 21:19] VITALS: BP 164/77
[2019-12-01 22:08] LABS: TROPONIN I < 0.015 ng/mL (0.000-0.045)
[2019-12-02 01:38] VITALS: BP 178/73
[2019-12-02 03:37] LABS: BASOPHILS # (AUTO) 0.03 x10^3/uL (0-0.1); BASOPHILS % (AUTO) 1 % (0-1); EOSINOPHILS % (AUTO) 11 % (1-7); LYMPHOCYTES # (AUTO) 1.73 x10^3/uL (1-3.4); LYMPHOCYTES % (AUTO) 27 % (22-44); MD NO; MEAN CORPUSCULAR HEMOGLOBIN 26.1 pg (27.0-34.8); MEAN CORPUSCULAR HGB CONC 32.2 g/dL (32.4-35.8); MEAN CORPUSCULAR VOLUME 81.2 fL (80-100); MEAN PLATELET VOLUME 7.9 fL (7.4-10.4); MONOCYTES # (AUTO) 0.29 x10^3/uL (0.2-0.8); MONOCYTES % (AUTO) 5 % (2-9); NEUTROPHILS # (AUTO) 3.58 x10^3/uL (1.8-6.8); NEUTROPHILS % (AUTO) 56 % (42-75); PLATELET COUNT 156 x10^3/uL (130-400)
[2019-12-02 03:48] LABS: ANION GAP 7 mmol/L (5-15); CALCIUM 8.7 mg/dL (8.5-10.1); CHLORIDE 114 mmol/L (98-107); CREATININE 2.23 mg/dL (0.55-1.02)
[2019-12-02 03:52] LABS: TROPONIN I < 0.015 ng/mL (0.000-0.045)
[2019-12-02] MEDS ORDERED: GABAPENTIN 300 MG CAPSULE PO SCH (06:00)
[2019-12-02 06:58] VITALS: BP 172/75
[2019-12-02] MEDS: INSULIN LISPRO 100 UNITS/ML, PEN SQ-INSULIN SCH ×4 (07:00→22:13)
[2019-12-02] MEDS: niFEDipine ER 30 MG TABLET.ER PO SCH ×2 (08:41→20:48)
[2019-12-02] MEDS: CARVEDILOL 12.5 MG TABLET PO SCH ×2 (08:42→20:49)
[2019-12-02] MEDS: ISOSORBIDE MONONITRATE ER 30 MG TABLET PO SCH (08:42)
[2019-12-02] MEDS: DOXAZOSIN 2MG TABLET PO SCH (08:43)
[2019-12-02] MEDS: APIXABAN 5 MG TABLET PO SCH ×2 (08:43→20:49)
[2019-12-02] MEDS: GABAPENTIN 300 MG CAPSULE PO SCH ×5 (08:43→20:49)
[2019-12-02] MEDS: FUROSEMIDE 20 MG TABLET PO SCH ×2 (08:44→18:01)
[2019-12-02] MEDS: LOSARTAN 50MG TABLET PO SCH ×2 (08:45→20:49)
[2019-12-02] MEDS: SENNA/DOCUSATE TABLET PO SCH (08:46)
[2019-12-02] MEDS ORDERED: CARVEDILOL 25 MG TABLET PO SCH (09:00)
[2019-12-02 15:50] VITALS: BP 168/72
[2019-12-02 18:34] VITALS: BP 156/67
[2019-12-02] MEDS: CEFTRIAXONE PMX 1GM/50ML 50 ML IV SCH (20:48)
[2019-12-02] MEDS: ACETAMINOPHEN 325 MG TABLET PO PRN (20:49)
[2019-12-02] MEDS: ATORVASTATIN 40 MG TABLET PO SCH (20:49)
[2019-12-03 02:00] VITALS: BP 130/66
[2019-12-03] MEDS: GABAPENTIN 300 MG CAPSULE PO SCH ×5 (05:37→20:29)
[2019-12-03] MEDS: INSULIN LISPRO 100 UNITS/ML, PEN SQ-INSULIN SCH ×4 (07:00→20:32)
[2019-12-03 08:00] VITALS: BP 153/100
[2019-12-03] MEDS: niFEDipine ER 30 MG TABLET.ER PO SCH ×2 (08:18→20:29)
[2019-12-03] MEDS: CARVEDILOL 12.5 MG TABLET PO SCH (08:18)
[2019-12-03] MEDS: ISOSORBIDE MONONITRATE ER 30 MG TABLET PO SCH (08:18)
[2019-12-03] MEDS: APIXABAN 5 MG TABLET PO SCH (08:19)
[2019-12-03] MEDS: DOXAZOSIN 2MG TABLET PO SCH (08:19)
[2019-12-03] MEDS: FUROSEMIDE 20 MG TABLET PO SCH ×2 (08:19→17:39)
[2019-12-03] MEDS: LOSARTAN 50MG TABLET PO SCH ×2 (08:19→20:30)
[2019-12-03] MEDS: SENNA/DOCUSATE TABLET PO SCH (08:20)
[2019-12-03 11:18] LABS: BASOPHILS # (AUTO) 0.03 x10^3/uL (0-0.1); BASOPHILS % (AUTO) 1 % (0-1); EOSINOPHILS # (AUTO) 0.58 x10^3/uL (0-0.4); EOSINOPHILS % (AUTO) 12 % (1-7); LYMPHOCYTES # (AUTO) 1.26 x10^3/uL (1-3.4); LYMPHOCYTES % (AUTO) 25 % (22-44); MD NO; MEAN CORPUSCULAR HEMOGLOBIN 26.6 pg (27.0-34.8); MEAN CORPUSCULAR HGB CONC 32.6 g/dL (32.4-35.8); MEAN CORPUSCULAR VOLUME 81.6 fL (80-100); MEAN PLATELET VOLUME 8.1 fL (7.4-10.4); MONOCYTES # (AUTO) 0.27 x10^3/uL (0.2-0.8); MONOCYTES % (AUTO) 5 % (2-9); NEUTROPHILS # (AUTO) 2.85 x10^3/uL (1.8-6.8); NEUTROPHILS % (AUTO) 57 % (42-75); PLATELET COUNT 153 x10^3/uL (130-400); RED BLOOD COUNT 3.47 x10^6/uL (3.82-5.3); RED CELL DISTRIBUTION WIDTH 15.9 % (9.6-15.2)
[2019-12-03 11:22] LABS: ANION GAP 6 mmol/L (5-15); CALCIUM 8.5 mg/dL (8.5-10.1); CHLORIDE 114 mmol/L (98-107); CREATININE 2.49 mg/dL (0.55-1.02)
[2019-12-03 15:55] VITALS: BP 125/60
[2019-12-03 19:09] VITALS: BP 137/67
[2019-12-03] MEDS: ACETAMINOPHEN 325 MG TABLET PO PRN (20:29)
[2019-12-03] MEDS: CEFTRIAXONE PMX 1GM/50ML 50 ML IV SCH (20:29)
[2019-12-03] MEDS: ATORVASTATIN 40 MG TABLET PO SCH (20:29)
[2019-12-03] MEDS: CARVEDILOL 25 MG TABLET PO SCH (20:29)
[2019-12-03] MEDS: DABIGATRAN 75 MG CAPSULE PO SCH (20:29)
[2019-12-04 03:55] VITALS: BP 125/62
[2019-12-04] MEDS: GABAPENTIN 300 MG CAPSULE PO SCH ×3 (05:04→16:10)
[2019-12-04 06:40] LABS: ANION GAP 7 mmol/L (5-15); CHLORIDE 113 mmol/L (98-107); CREATININE 2.29 mg/dL (0.55-1.02)
[2019-12-04 08:40] VITALS: BP 143/66
[2019-12-04] MEDS: niFEDipine ER 30 MG TABLET.ER PO SCH (09:40)
[2019-12-04] MEDS: DABIGATRAN 75 MG CAPSULE PO SCH (09:40)
[2019-12-04] MEDS: DOXAZOSIN 2MG TABLET PO SCH (09:40)
[2019-12-04] MEDS: ISOSORBIDE MONONITRATE ER 30 MG TABLET PO SCH (09:41)
[2019-12-04] MEDS: FUROSEMIDE 20 MG TABLET PO SCH ×2 (09:41→16:10)
[2019-12-04] MEDS: SENNA/DOCUSATE TABLET PO SCH (09:41)
[2019-12-04] MEDS: LOSARTAN 50MG TABLET PO SCH (09:41)
[2019-12-04] MEDS: CARVEDILOL 25 MG TABLET PO SCH (09:41)
[2019-12-04] MEDS: INSULIN LISPRO 100 UNITS/ML, PEN SQ-INSULIN SCH ×2 (09:41→12:36)
[2019-12-04] MEDS ORDERED: DABI75CA3 PO (12:53)
[2019-12-04] MEDS ORDERED: SULF1TAB24 PO (12:53)
[2019-12-04 13:58] VITALS: BP 120/58
== END 2019-12-04 16:30 | disposition home or self-care (01) | DRG 65 ==
LOC: ED 20:50 → EDIP 20:51 → 4WST 21:15
PROVIDERS: ADMIT Family Medicine; ATTEND Internal Medicine
DX: I63.9 Cerebral infarction, unspecified (principal); I50.32 Chronic diastolic (congestive) heart failure; N39.0 Urinary tract infection, site not specified; I13.0 Hypertensive heart and chronic kidney disease with heart failure and stage 1 through stage 4 chronic kidney disease, or unspecified chronic kidney disease; N04.9 Nephrotic syndrome with unspecified morphologic changes; R55 Syncope and collapse; R00.1 Bradycardia, unspecified; E11.22 Type 2 diabetes mellitus with diabetic chronic kidney disease; I95.9 Hypotension, unspecified; I48.91 Unspecified atrial fibrillation; N18.3 Chronic kidney disease, stage 3 (moderate); Z79.01 Long term (current) use of anticoagulants; Z86.718 Personal history of other venous thrombosis and embolism; Z86.73 Personal history of transient ischemic attack (TIA), and cerebral infarction without residual deficits; Z87.440 Personal history of urinary (tract) infections; Z88.5 Allergy status to narcotic agent
CPT/HCPCS: 36415; 70551; 71045; 80048; 80053; 81001; 82962; 83735; 84100; 84443; 84484; 85025; 85610; 85730; 87077; 87086; 87186; 93005; 93880; 96365; G0378; J0696; J1815

== ENCOUNTER 2020-03-12 14:23 | Emergency (ER) | payer MEDICARE ==
[~2020-03-12] VITALS: Ht 162.6 cm; Wt 81.8 kg
[~2020-03-12 14:23] MED LIST changes: +CARV12.52 PO; +CARV25TA12 PO; +DABI75CA3 PO; +LORA10TA41 PO; +SULF1TAB24 PO; -WARF5TAB PO; +WARF5TAB2 PO
--- NOTE | 2020-03-12 16:05 | NUR ---
Pt to room from lobby.
--- NOTE | 2020-03-12 16:17 | NUR ---
THIS IS A 69 YO FEMALE SENT IN BY MRI CT TECH FOR INCREASED BUN, PER PATIENT "I GOT MY LABS DRAWN 3 DAYS AGO AND TODAY AND MY BUN WAS 85 THE FIRST TIME AND 89 TODAY AND THEY TOLD ME TO COME IN". PATIENT DENIES ANY SYMPTOMS, PRODUCING URINE ADEQUATELY. VSS, NEFTALIN, MONITORING IN PLACE. AWAITING MD MORAN. CALL LIGHT IN REACH
[2020-03-12 17:01] LABS: BASOPHILS # (AUTO) 0.04 x10^3/uL (0-0.1); BASOPHILS % (AUTO) 1 % (0-1); EOSINOPHILS % (AUTO) 12 % (1-7); LYMPHOCYTES # (AUTO) 1.22 x10^3/uL (1-3.4); LYMPHOCYTES % (AUTO) 18 % (22-44); MD NO; MEAN CORPUSCULAR HEMOGLOBIN 27.1 pg (27.0-34.8); MEAN CORPUSCULAR HGB CONC 32.4 g/dL (32.4-35.8); MEAN CORPUSCULAR VOLUME 83.8 fL (80-100); MEAN PLATELET VOLUME 8.1 fL (7.4-10.4); MONOCYTES # (AUTO) 0.32 x10^3/uL (0.2-0.8); MONOCYTES % (AUTO) 5 % (2-9); NEUTROPHILS # (AUTO) 4.25 x10^3/uL (1.8-6.8); NEUTROPHILS % (AUTO) 64 % (42-75); PLATELET COUNT 160 x10^3/uL (130-400); RED BLOOD COUNT 3.31 x10^6/uL (3.82-5.3); RED CELL DISTRIBUTION WIDTH 14.8 % (9.6-15.2)
--- NOTE | 2020-03-12 17:01 | NUR ---
STRAIGHT CATH PERFORMED TO OBTAIN STERILE SPECIMEN.
--- NOTE | 2020-03-12 17:06 | NUR ---
UA WALKED TO LAB
[2020-03-12 17:07] LABS: ALANINE AMINOTRANSFERASE 23 U/L (12-78); ALBUMIN 2.6 g/dL (3.4-5.0); ANION GAP 5 mmol/L (5-15); CALCIUM 8.3 mg/dL (8.5-10.1); CHLORIDE 117 mmol/L (98-107); CREATININE 2.93 mg/dL (0.55-1.02)
[2020-03-12 17:10] LABS: ALKALINE PHOSPHATASE 64 U/L (45-117); BILIRUBIN,TOTAL 0.2 mg/dL (0.2-1.0); TOTAL PROTEIN 6.1 g/dL (6.4-8.2)
[2020-03-12 17:27] LABS: MICROSCOPIC INDICATED
[2020-03-12 17:33] VITALS: BP 140/51
--- NOTE | 2020-03-12 17:44 | NUR ---
FROILAN TUCKER TO ROOM FOR RECHECK
--- NOTE | 2020-03-12 18:11 | NUR ---
Patient/Caregiver given discharge instructions and they have confirmed that they understand the instructions. Patient wheeled to discharge with family
== END 2020-03-12 18:13 | disposition home or self-care (01) ==
LOC: ED 16:21
DX: I12.9 Hypertensive chronic kidney disease with stage 1 through stage 4 chronic kidney disease, or unspecified chronic kidney disease (principal); N18.3 Chronic kidney disease, stage 3 (moderate); E11.22 Type 2 diabetes mellitus with diabetic chronic kidney disease; E78.00 Pure hypercholesterolemia, unspecified; Z86.718 Personal history of other venous thrombosis and embolism; Z87.891 Personal history of nicotine dependence; Z86.73 Personal history of transient ischemic attack (TIA), and cerebral infarction without residual deficits
CPT/HCPCS: 36415; 80053; 81001; 85025; 87077; 87086; 87186; 99283

== ENCOUNTER 2020-04-23 11:08 | Inpatient (IN) | payer MEDICARE ==
[~2020-04-23] VITALS: Ht 162.6 cm; Wt 79.9 kg
--- NOTE | 2020-04-23 11:35 | NUR ---
PT CO WEAKNESS, UNABLE TO EAT FOR 2 WEEKS. W N/V. PT HAVING SYNCOPE EPSISODES WHEN SITTING IN WHEELCHAIR. DENIES BLOOD IN STOOL OR EMESIS. DENIES CP OR SOB, NO COUGH EKG IN ROOM. ACTING INSTRUCTOR APPLIED.
[2020-04-23] MEDS ORDERED: ONDANSETRON 2MG/ML, 2ML ONE (11:44)
[2020-04-23] MEDS ORDERED: ONDANSETRON 2MG/ML, 2ML IVPush ONE (12:00)
[2020-04-23] MEDS ORDERED: SODIUM CHLORIDE FLUSH 10ML SYR IVF ONE (12:00)
[2020-04-23 12:08] LABS: ANION GAP 9 mmol/L (5-15); CALCIUM 9.1 mg/dL (8.5-10.1); CHLORIDE 118 mmol/L (98-107)
[2020-04-23 12:15] LABS: ALANINE AMINOTRANSFERASE 15 U/L (12-78); ALKALINE PHOSPHATASE 71 U/L (45-117); BASOPHILS # (AUTO) 0.05 x10^3/uL (0-0.1); BASOPHILS % (AUTO) 1 % (0-1); BILIRUBIN,TOTAL 0.4 mg/dL (0.2-1.0); CREATININE 2.68 mg/dL (0.55-1.02); EOSINOPHILS # (AUTO) 0.46 x10^3/uL (0-0.4); EOSINOPHILS % (AUTO) 7 % (1-7); LYMPHOCYTES # (AUTO) 1.18 x10^3/uL (1-3.4); LYMPHOCYTES % (AUTO) 17 % (22-44); MD NO; MEAN CORPUSCULAR HEMOGLOBIN 26.6 pg (27.0-34.8); MEAN CORPUSCULAR HGB CONC 31.4 g/dL (32.4-35.8); MEAN CORPUSCULAR VOLUME 84.7 fL (80-100); MEAN PLATELET VOLUME 8.3 fL (7.4-10.4); MONOCYTES # (AUTO) 0.36 x10^3/uL (0.2-0.8); MONOCYTES % (AUTO) 5 % (2-9); NEUTROPHILS # (AUTO) 5.08 x10^3/uL (1.8-6.8); NEUTROPHILS % (AUTO) 71 % (42-75); PLATELET COUNT 187 x10^3/uL (130-400); RED BLOOD COUNT 3.35 x10^6/uL (3.82-5.3); RED CELL DISTRIBUTION WIDTH 13.7 % (9.6-15.2); TOTAL PROTEIN 6.5 g/dL (6.4-8.2); TROPONIN I < 0.015 ng/mL (0.000-0.045)
[2020-04-23 12:41] LABS: MICROSCOPIC INDICATED
[2020-04-23] MEDS ORDERED: CEFTRIAXONE PMX 1GM/50ML 50 ML IV ONE (13:30)
[2020-04-23] MEDS ORDERED: CEFTRIAXONE PMX 1GM/50ML 50 ML ONE (13:35)
--- NOTE | 2020-04-23 13:38 | NUR ---
PLAN FOR ADMIT. BLOOD CULTURES IN PROCESS. ABX TO BE ADMINISTERED.
[2020-04-23] MEDS ORDERED: hydrALAzine 20 MG/ML, 1ML IVPush PRN (15:30)
[2020-04-23] MEDS ORDERED: ONDANSETRON 2MG/ML, 2ML IVPush PRN (15:30)
[2020-04-23] MEDS: SODIUM CHLORIDE 0.9% 1,000 ML IV SCH (15:30)
--- NOTE | 2020-04-23 15:53 | NUR ---
PT RESTING, VSS. CALL LIGHT IN REACH
[2020-04-23] MEDS ORDERED: DOXA2TAB9 PO (16:13)
[2020-04-23] MEDS ORDERED: HYDR-3342 PO (16:13)
[2020-04-23] MEDS ORDERED: FERR325T5 PO (16:13)
[2020-04-23] MEDS ORDERED: CARV6.252 PO (16:13)
[2020-04-23] MEDS ORDERED: ROPI0.254 PO (16:13)
--- NOTE | 2020-04-23 16:25 | NUR ---
pt cleaned up and repositioned. pt able to turn self. vss
--- NOTE | 2020-04-23 17:13 | NUR ---
ATTEMPT REPORT. RN TO CALL BACK
--- NOTE | 2020-04-23 17:27 | NUR ---
REPORT TO ZIGGY
[2020-04-23 17:53] VITALS: BP 134/62
[2020-04-23 19:39] VITALS: BP 136/69
[2020-04-23] MEDS: ACETAMINOPHEN 325 MG TABLET PO PRN (20:48)
[2020-04-23] MEDS: INSULIN LISPRO 100 UNITS/ML, PEN SQ-INSULIN SCH (20:57)
[2020-04-24] VITALS (7 sets, daily range): BP systolic 128–157; BP diastolic 65–73
[2020-04-24 06:30] LABS: BASOPHILS # (AUTO) 0.04 x10^3/uL (0-0.1); BASOPHILS % (AUTO) 1 % (0-1); EOSINOPHILS # (AUTO) 0.33 x10^3/uL (0-0.4); EOSINOPHILS % (AUTO) 5 % (1-7); LYMPHOCYTES # (AUTO) 1.25 x10^3/uL (1-3.4); LYMPHOCYTES % (AUTO) 17 % (22-44); MD NO; MEAN CORPUSCULAR HEMOGLOBIN 27.4 pg (27.0-34.8); MEAN CORPUSCULAR HGB CONC 32.6 g/dL (32.4-35.8); MEAN PLATELET VOLUME 8.6 fL (7.4-10.4); MONOCYTES # (AUTO) 0.32 x10^3/uL (0.2-0.8); MONOCYTES % (AUTO) 4 % (2-9); NEUTROPHILS # (AUTO) 5.45 x10^3/uL (1.8-6.8); NEUTROPHILS % (AUTO) 74 % (42-75); PLATELET COUNT 156 x10^3/uL (130-400); RED BLOOD COUNT 3.05 x10^6/uL (3.82-5.3); RED CELL DISTRIBUTION WIDTH 13.2 % (9.6-15.2)
[2020-04-24 06:42] LABS: ANION GAP 10 mmol/L (5-15); CALCIUM 8.4 mg/dL (8.5-10.1); CHLORIDE 116 mmol/L (98-107)
[2020-04-24 06:43] LABS: CREATININE 2.78 mg/dL (0.55-1.02)
[2020-04-24] MEDS: INSULIN LISPRO 100 UNITS/ML, PEN SQ-INSULIN SCH ×2 (07:00→11:00)
[2020-04-24] MEDS: SODIUM BICARBONATE 650 MG TABLET PO SCH ×2 (12:38→20:15)
[2020-04-24] MEDS: DABIGATRAN 75 MG CAPSULE PO SCH ×2 (12:38→20:16)
[2020-04-24] MEDS: PANTOPRAZOLE 40 MG IV IVPush SCH (13:53)
[2020-04-24] MEDS ORDERED: GABAPENTIN 300 MG CAPSULE PO SCH (14:00)
[2020-04-24] MEDS: SUCRALFATE 1 GM/10 ML UDC PO SCH ×2 (16:47→20:15)
[2020-04-24] MEDS: ACETAMINOPHEN 325 MG TABLET PO PRN (16:48)
[2020-04-24] MEDS: SODIUM CHLORIDE 0.9% 1,000 ML IV SCH (18:24)
[2020-04-24] MEDS: CARVEDILOL 6.25 MG TABLET PO SCH (20:15)
[2020-04-24] MEDS ORDERED: ATORVASTATIN 40 MG TABLET PO SCH (21:00)
[2020-04-24] MEDS ORDERED: ROPINIROLE 0.25MG TABLET PO SCH (21:00)
[2020-04-25 02:23] VITALS: BP 132/55
[2020-04-25 07:29] VITALS: BP 162/54
[2020-04-25] MEDS: SODIUM BICARBONATE 650 MG TABLET PO SCH (08:04)
[2020-04-25] MEDS: SUCRALFATE 1 GM/10 ML UDC PO SCH ×2 (08:04→11:56)
[2020-04-25] MEDS: PANTOPRAZOLE 40 MG IV IVPush SCH (08:05)
[2020-04-25] MEDS: DABIGATRAN 75 MG CAPSULE PO SCH (08:05)
[2020-04-25] MEDS: CARVEDILOL 6.25 MG TABLET PO SCH (08:05)
[2020-04-25] MEDS ORDERED: LORATADINE 10 MG TABLET PO SCH (09:00)
[2020-04-25] MEDS ORDERED: FERROUS SULFATE 325 MG TABLET PO SCH (09:00)
[2020-04-25] MEDS ORDERED: SODI650T PO (11:56)
[2020-04-25] MEDS ORDERED: PANT40TA5 PO (11:56)
[2020-04-25] MEDS ORDERED: SUCR1TAB PO (11:56)
[2020-04-25] MEDS ORDERED: CEFD300C37 PO (11:57)
[2020-04-25 12:11] VITALS: BP 146/43
== END 2020-04-25 15:40 | disposition home or self-care (01) | DRG 391 ==
LOC: ED 12:59 → EDIP 13:38 → 3N 17:44
PROVIDERS: ADMIT Hospitalist; ATTEND Hospitalist
PROC: 0T9B70Z Drainage of Bladder with Drainage Device, Via Natural or Artificial Opening (ICD-10-PCS; principal; 2020-04-23)
DX: K21.9 Gastro-esophageal reflux disease without esophagitis (principal); N17.0 Acute kidney failure with tubular necrosis; I82.622 Acute embolism and thrombosis of deep veins of left upper extremity; I50.32 Chronic diastolic (congestive) heart failure; E87.2 Acidosis; I13.0 Hypertensive heart and chronic kidney disease with heart failure and stage 1 through stage 4 chronic kidney disease, or unspecified chronic kidney disease; I69.354 Hemiplegia and hemiparesis following cerebral infarction affecting left non-dominant side; F45.8 Other somatoform disorders; N30.91 Cystitis, unspecified with hematuria; E11.22 Type 2 diabetes mellitus with diabetic chronic kidney disease; E11.43 Type 2 diabetes mellitus with diabetic autonomic (poly)neuropathy; N18.3 Chronic kidney disease, stage 3 (moderate); G90.9 Disorder of the autonomic nervous system, unspecified; Z66 Do not resuscitate; Z79.899 Other long term (current) drug therapy; Z88.8 Allergy status to other drugs, medicaments and biological substances
CPT/HCPCS: 36415; 71045; 80048; 80053; 81001; 82962; 83605; 84484; 85025; 87040; 87077; 87086; 87186; 93005; 96365; 96375; G0378; J0696; J2405; C9113; J7030

== ENCOUNTER → 2020-07-09 | Outpatient (CLI) | payer MEDICARE, MEDICAID ==
[~2020-07-09] MED LIST changes: +CARV6.252 PO; +FERR325T5 PO; +HYDR-3342 PO; -LISI1TAB19 PO; +LISI1TAB39 PO; +PANT40TA6 PO; +ROPI0.254 PO; +SODI650T PO; +SUCR1TAB PO
== END | disposition home or self-care (01) ==
LOC: RAD 13:56
PROVIDERS: ATTEND Nurse Practitioner
DX: I31.3 Pericardial effusion (noninflammatory) (principal); I25.10 Atherosclerotic heart disease of native coronary artery without angina pectoris; E04.1 Nontoxic single thyroid nodule; M51.34 Other intervertebral disc degeneration, thoracic region
CPT/HCPCS: 71250

== ENCOUNTER 2020-08-30 15:59 | Observation (INO) | payer MEDICARE, MEDICAID ==
[~2020-08-30] VITALS: Ht 162.6 cm; Wt 80.0 kg
[~2020-08-30 15:59] MED LIST changes: +AMLO-211 PO; -AMLO10TA8 PO
--- NOTE | 2020-08-30 16:16 | NUR ---
PT PLACED IN HOSPITAL GOWN. PT ON CARDIAC AND VITALS MONITORS. PT STATED HAS AN IMPROVEMENT IN CHEST PAIN AT THIS TIME. EKG DONE. WILL CONTINUE TO MONITOR.
[2020-08-30] MEDS ORDERED: LASIX (17:07)
[2020-08-30 17:15] LABS: BASOPHILS % (AUTO) 2 % (0-1); EOSINOPHILS % (AUTO) 10 % (1-7); LYMPHOCYTES % (AUTO) 21 % (22-44); MEAN CORPUSCULAR HEMOGLOBIN 26.3 pg (27.0-34.8); MEAN CORPUSCULAR HGB CONC 32.4 g/dL (32.4-35.8); MEAN PLATELET VOLUME 8.4 fL (7.4-10.4); MONOCYTES % (AUTO) 6 % (2-9); NEUTROPHILS % (AUTO) 61 % (42-75); PLATELET COUNT 191 x10^3/uL (130-400); RED BLOOD COUNT 4.17 x10^6/uL (3.82-5.3); RED CELL DISTRIBUTION WIDTH 14.8 % (9.6-15.2)
[2020-08-30 17:17] LABS: MD NO
[2020-08-30 17:23] LABS: ANION GAP 5 mmol/L (5-15); CALCIUM 9.1 mg/dL (8.5-10.1); CHLORIDE 105 mmol/L (98-107)
[2020-08-30 17:28] LABS: TROPONIN I < 0.015 ng/mL (0.000-0.045)
--- NOTE | 2020-08-30 17:47 | NUR ---
PT UP FOR RECHECK. ALL RESULTS BACK
--- NOTE | 2020-08-30 18:15 | NUR ---
PT TELE RHYTHM CHANGED TO BIGEMINY RATE OF 61. PT PALPABLE PULSE ABOUT 33-40. ERP AWARE. CHANGE TO ADMIT PT. PT AWARE. PT STATED WHEN SHE HOLDS HER HEAD UP SHE GETS DIZZY, OTHER THEN THAT, HAS NO SYMPTOMS.
--- NOTE | 2020-08-30 19:37 | NUR ---
report from janet thibodeaux
--- NOTE | 2020-08-30 20:40 | NUR ---
PT PROVIDED MEAL FROM [employer].
--- NOTE | 2020-08-30 20:47 | NUR ---
attempted to call report
--- NOTE | 2020-08-30 21:15 | NUR ---
report to janet cutler
[2020-08-30] MEDS ORDERED: morphine SULFATE 10 MG/ML, 1ML IVPush PRN (21:30)
[2020-08-30] MEDS ORDERED: OXYcodone IR 5MG TABLET PO PRN (21:30)
[2020-08-30] MEDS ORDERED: hydrALAzine 20 MG/ML, 1ML IVPush PRN (21:30)
[2020-08-30] MEDS ORDERED: ONDANSETRON ODT 4 MG PO PRN (21:30)
[2020-08-30] MEDS ORDERED: ONDANSETRON 2MG/ML, 2ML IVPush PRN (21:30)
[2020-08-30] MEDS ORDERED: POLYETHYLENE GLYCOL 17 GM PACKET PO PRN (21:30)
[2020-08-30] MEDS ORDERED: NITROGLYCERIN 0.4 MG BOTTLE (25 TABS) SL PRN (21:30)
[2020-08-30] MEDS ORDERED: BISACODYL 10 MG SUPP PR PRN (21:30)
[2020-08-30] MEDS ORDERED: DOCUSATE 100 MG CAPSULE PO PRN (21:30)
[2020-08-30] MEDS ORDERED: PROMETHAZINE 25 MG/ML, 1ML IM PRN (21:30)
[2020-08-30 21:46] LABS: FREE T4 (FREE THYROXINE) 1.26 ng/dL (0.76-1.46)
[2020-08-30 22:08] VITALS: BP 178/66
[2020-08-30] MEDS: HEPARIN 5,000 UNITS/ML, 1ML SQ SCH (23:29)
[2020-08-30] MEDS: SODIUM CHLORIDE 0.9% 1,000 ML IV SCH (23:29)
[2020-08-30] MEDS ORDERED: ACET-1600 PO (23:44)
[2020-08-31] VITALS (7 sets, daily range): BP systolic 122–200; BP diastolic 62–80
[2020-08-31] MEDS: ACETAMINOPHEN 325 MG TABLET PO PRN ×2 (00:49→20:47)
[2020-08-31 01:01] LABS: TROPONIN I < 0.015 ng/mL (0.000-0.045)
[2020-08-31 03:12] LABS: BASOPHILS % (AUTO) 1 % (0-1); EOSINOPHILS % (AUTO) 11 % (1-7); LYMPHOCYTES % (AUTO) 27 % (22-44); MEAN CORPUSCULAR HEMOGLOBIN 26.1 pg (27.0-34.8); MEAN CORPUSCULAR HGB CONC 32.2 g/dL (32.4-35.8); MEAN PLATELET VOLUME 8.1 fL (7.4-10.4); MONOCYTES % (AUTO) 6 % (2-9); NEUTROPHILS % (AUTO) 54 % (42-75); PLATELET COUNT 181 x10^3/uL (130-400); RED BLOOD COUNT 4.07 x10^6/uL (3.82-5.3); RED CELL DISTRIBUTION WIDTH 14.3 % (9.6-15.2)
[2020-08-31 03:17] LABS: MD NO
[2020-08-31 03:24] LABS: ALBUMIN 2.7 g/dL (3.4-5.0); CHLORIDE 110 mmol/L (98-107)
[2020-08-31 03:30] LABS: ALANINE AMINOTRANSFERASE 14 U/L (12-78); ALKALINE PHOSPHATASE 73 U/L (45-117); ANION GAP 7 mmol/L (5-15); BILIRUBIN,TOTAL 0.2 mg/dL (0.2-1.0); CHOL/HDL RATIO 4.7; CHOLESTEROL, TOTAL 147 mg/dL (140-239); HDL CHOL % 21 % (28-40); HDL CHOLESTEROL (DIRECT) 31 mg/dL (40-60); LDL CHOLESTEROL,CALCULATED 86 mg/dL (54-169); LDL/HDL RATIO 2.8 (0.5-3.0); TOTAL PROTEIN 6.3 g/dL (6.4-8.2); TRIGLYCERIDES 149 mg/dL (50-200); VLDL CHOLESTEROL 30 mg/dL (0-25)
[2020-08-31 03:32] LABS: TROPONIN I < 0.015 ng/mL (0.000-0.045)
[2020-08-31] MEDS: ASPIRIN 325 MG TABLET EC PO SCH (07:25)
[2020-08-31] MEDS: SODIUM CHLORIDE 0.9% 1,000 ML IV SCH (09:42)
[2020-08-31] MEDS: HEPARIN 5,000 UNITS/ML, 1ML SQ SCH ×2 (09:43→15:57)
[2020-08-31] MEDS ORDERED: REGADENOSON 0.4 MG/5 ML SYRINGE ONE (12:29)
[2020-08-31] MEDS ORDERED: SIMETHICONE 125 MG CHEW TAB ONE (20:45)
[2020-08-31] MEDS: DABIGATRAN 75 MG CAPSULE PO SCH (20:47)
[2020-08-31] MEDS: niFEDipine ER 30 MG TABLET.ER PO SCH (20:48)
[2020-08-31] MEDS: CARVEDILOL 6.25 MG TABLET PO SCH (20:48)
[2020-08-31] MEDS: LOSARTAN 50MG TABLET PO SCH (20:48)
[2020-08-31] MEDS ORDERED: SIMETHICONE 125 MG CHEW TAB PO PRN (21:00)
[2020-09-01 01:50] VITALS: BP 146/66
[2020-09-01] MEDS: ASPIRIN 325 MG TABLET EC PO SCH (05:29)
[2020-09-01 08:45] VITALS: BP 180/66
[2020-09-01] MEDS: niFEDipine ER 30 MG TABLET.ER PO SCH (09:00)
[2020-09-01] MEDS: CARVEDILOL 6.25 MG TABLET PO SCH (09:00)
[2020-09-01] MEDS: LOSARTAN 50MG TABLET PO SCH (09:00)
[2020-09-01] MEDS: DABIGATRAN 75 MG CAPSULE PO SCH (09:00)
[2020-09-01] MEDS ORDERED: DOXAZOSIN 2MG TABLET PO SCH ×2 (09:00→10:30)
[2020-09-01 11:37] VITALS: BP 164/62
== END 2020-09-01 12:48 | disposition home or self-care (01) ==
LOC: ED 17:30 → INTOOBSV 18:44 → EDIP 18:44 → 5SO 21:41 → DCLOUNGE 09-01 12:25
PROVIDERS: ADMIT Internal Medicine; ATTEND Hospitalist
DX: I13.0 Hypertensive heart and chronic kidney disease with heart failure and stage 1 through stage 4 chronic kidney disease, or unspecified chronic kidney disease (principal); E11.22 Type 2 diabetes mellitus with diabetic chronic kidney disease; I50.30 Unspecified diastolic (congestive) heart failure; N18.4 Chronic kidney disease, stage 4 (severe); A04.72 Enterocolitis due to Clostridium difficile, not specified as recurrent; I48.91 Unspecified atrial fibrillation; E78.00 Pure hypercholesterolemia, unspecified; G40.909 Epilepsy, unspecified, not intractable, without status epilepticus; R53.81 Other malaise; Z87.891 Personal history of nicotine dependence; Z79.899 Other long term (current) drug therapy; Z86.73 Personal history of transient ischemic attack (TIA), and cerebral infarction without residual deficits; Z90.710 Acquired absence of both cervix and uterus; Z86.718 Personal history of other venous thrombosis and embolism; Z86.711 Personal history of pulmonary embolism
CPT/HCPCS: 36415; 71045; 78452; 80048; 80053; 80061; 82040; 83036; 83735; 83880; 84439; 84443; 84484; 85025; 93005; 93017; 96361; 96372; 96374; 99285; A9502; C9898; G0378; J0360; J1644; J2785; J7030